=== PATIENT | female | born 1955 | race Caucasian/White ===

== ENCOUNTER 2020-10-02 20:55 | Emergency (ER) | payer MEDICARE, MEDICAID, SELFPAY ==
[2020-10-02 20:58] VITALS: BP 156/75; PULSE 87; RESP 16; TEMP 36.1; O2SAT 97; BMI 18.0
--- NOTE | 2020-10-02 22:41 | XR_ITS ---
EXAMINATION: XR CHEST CLINICAL INFORMATION: Cough. COMPARISON: Chest x-ray 03/03/2015 TECHNIQUE: Frontal portable view of the chest was obtained. 10:58 PM FINDINGS: No significant abnormality is noted involving the heart, lungs, mediastinum, bony thorax or soft tissues. XR/XR chest 1V IMPRESSION: Unremarkable examination.
--- NOTE | 2020-10-02 23:19 | PC.NURSE ---
First contact with pt. Pt changed over into fabian, ambulates with slow, steady gait. Pt reports LBP post fall a few days ago, pt reports she fell from her bed bc it is too high denies LOC. IV access obtained, labs drawn and sent. Awaiting primary md mayers
[2020-10-02 23:22] LABS: MANUAL DIFF FLAG NO
[2020-10-02 23:24] LABS: Basophils Absolute Auto 0.1 X10*3/uL (0.0-0.2); Basophils Percent Auto 0.7 % (0-2); Eosinophils Absolute Auto 0.3 X10*3/uL (0.0-0.4); Eosinophils Percent Auto 4.6 % (0-4); Hematocrit 37.6 % (37-47); Hemoglobin 12.4 g/dl (12.0-16.0); Imm Gran Abs Auto 0.01 X10*3/uL (0.00-0.03); Imm Gran Pct Auto 0.1 % (0.0-0.4); Lymphocytes Absolute Auto 2.1 X10*3/uL (1.2-4.9); Lymphocytes Percent Auto 29.4 % (20-40); Mean Corpuscular Hemoglobin 31.5 pg (27.0-33.0); Mean Corpuscular Volume 95.4 fL (80-98); Mean Platelet Volume 10.2 fL (9.4-12.3); Monocytes Absolute Auto 0.5 X10*3/uL (0.1-1.2); Monocytes Percent Auto 6.9 % (2-11); Neutrophils Absolute Auto 4.2 X10*3/uL (2.0-8.3); Neutrophils Percent Auto 58.3 % (45-73); Platelet Count 266 X10*3/uL (160-400); Red Blood Count 3.94 X10*6/uL (4.20-5.50); Red Cell Distribution Width 13.3 % (11.0-16.0); White Blood Count 7.1 X10*3/uL (4.8-10.8)
[2020-10-02 23:50] LABS: Alanine Aminotransferase 6 U/L (0-31); Albumin Level 4.2 g/dL (3.5-5.0); Alkaline Phosphatase 56 U/L (39-117); Anion Gap 14 (12-20); Aspartate Amino Transferase 18 U/L (5-31); Bilirubin Total 0.7 mg/dL (0.0-1.0); Blood Urea Nitrogen 14 mg/dL (9-16); Carbon Dioxide 25 mmol/L (22-29); Chloride 105 mmol/L (96-108); Creatinine Clr Calc Pharmacy 52.6; Estimated Glomerular Filt Rate > 60; Glucose Random 95 mg/dL (60-115); Potassium 3.8 mmol/l (3.3-5.1); Sodium 140 mmol/L (135-145); Total Protein 7.9 g/dL (6.5-8.0)
--- NOTE | 2020-10-02 23:55 | ED_ITS ---
HPI - General Adult General Chief complaint: General Medical Stated complaint: Multiple complaints Time Seen by Provider: 10/02/20 22:38 Source: patient and family Mode of arrival: ambulatory Limitations: no limitations History of Present Illness HPI narrative: This is a 65-year-old female who states that she fell out of her bed approximately 2 days ago because it is too high but denies that she hit her head or had any loss of consciousness but does describe some lower back pain. As per the daughter in triage they have concerns regarding the patient's living conditions and the landlord's involvement in keeping the premises safe. There is apparently some concern regarding access to the apartment with keys and comments that the landlord has made regarding possible eviction. the daughter also expresses some concerns that the patient is not taking care of herself, sleeping through most of the day, and has been cutting her hair and exhibiting some bizarre behavior. Related Data Home Medications Medication Instructions Recorded Confirmed Unobtainable 10/03/20 10/03/20 Allergies Allergy/AdvReac Type Severity Reaction Status Date / Time Penicillins [PENICILLINS] Allergy Intermediate RASH Verified 10/02/20 21:01 Review of Systems Review of Systems: pertinent positives and negatives as stated in HPI 10 point review systems is otherwise negative. [facility] Past Medical History Source: nursing notes reviewed Social History Social History Alcohol intake: never Smoking Status: Never smoker Use of substances other than those prescribed or required for medical reasons: No Advance Directives: No Advance Directives Information Provided: No Physical Exam Vital Signs: Vital Signs: Last Vital Signs Temp 97.9 F 10/03/20 02:53 Pulse 61 10/03/20 02:53 Resp 15 10/03/20 02:53 BP 154/77 H 10/03/20 02:53 Pulse Ox 100 10/03/20 02:53 Body Mass Index 18.0 VITAL SIGNS: Reviewed. GENERAL: Well developed, well nourished, in no acute distress. HEAD: Normocephalic/atraumatic, EYES: PERRLA, EOMI intact without pain, no nystagmus/pallor/icterus noted EARS: Ext canals without abnormality, TMs non-bulging and non-erythematous NOSE: Nares patent bilateral OROPHARYNX: no oral lesions noted, posterior pharynx clear and non-erythematous without noted tonsillar enlargement/erythema/exudates NECK: Supple, no adenopathy LUNGS: Normal breath sounds. No adventitious sounds or accessory muscle use. SpO2<97> CARDIOVASCULAR: Regular rate and rhythm without noted murmurs, no JVD or lower extremity edema. ABDOMEN: Soft, non-tender, non-distended with bowel sounds. No rigidity. No gu arding. No palpable masses or hernias noted MUSCULOSKELETAL: No tenderness, deformities, or effusions noted on gross inspection. BACK: Multiple areas along the back that are tender on palpation EXTREMITIES: No cyanosis, clubbing or edema. SKIN: Inspection of the skin reveals no rashes, ulcerations, jaundice, pallor, or petechiae. NEUROLOGIC: Alert and oriented x 4. Strength and sensation to light touch were grossly intact x 4. Course Course Course Narrative: This is a 65-year-old female with history and clinical presentation concerning for possible injury to her back and will evaluate for an y evidence of infection, anemia with likely referral to case management and PT for possible placement. At this time it does not appear that the family is able to assist the patient with living conditions. On review of all investigations there are no acute findings, specifically no evidence of vertebral /hip/pelvis fractures and COVID-19 testing is negative. Patient is otherwise medically cleared for further evaluation by case management as well as physical therapy and possible placement. Sign out to Dr Bill. Plan: CM/PT, f/u Medical Decision Making Lab Data Result diagrams: 10/02/20 23:14 10/02/20 23:14 Labs: Lab Results 10/02/20 10/02/20 10/03/20 Range/Units 23:14 23:14 00:05 WBC 7.1 (4.8-10.8) X10*3/uL RBC 3.94 L (4.20-5.50) X10*6/uL Hgb 12.4 (12.0-16.0) g/dl Hct 37.6 (37-47) % MCV 95.4 (80-98) fL MCH 31.5 (27.0-33.0) pg MCHC 33.0 (31.0-35.0) g/dl RDW 13.3 (11.0-16.0) % Plt Count 266 (160-400) X10*3/uL MPV 10.2 (9.4-12.3) fL Immature Gran % (Auto) 0.1 (0.0-0.4) % Neut % (Auto) 58.3 (45-73) % Lymph % (Auto) 29.4 (20-40) % [place] % (Auto) 6.9 (2-11) % Eos % (Auto) 4.6 H (0-4) % Baso % (Auto) 0.7 (0-2) % Lymph # (Auto) 2.1 (1.2-4.9) X10*3/uL [place] # (Auto) 0.5 (0.1-1.2) X10*3/uL Eos # (Auto) 0.3 (0.0-0.4) X10*3/uL Baso # (Auto) 0.1 (0.0-0.2) X10*3/uL Abs Immat Gran (auto) 0.01 (0.00-0.03) X10*3/uL Absolute Neuts (auto) 4.2 (2.0-8.3) X10*3/uL Absolute Nucleated RBC 0.000 (0.0-0.012) X10*3/uL Nucleated RBC % (auto) 0.0 (0.0-0.2) /100WBC Sodium 140 (135-145) mmol/L Potassium 3.8 (3.3-5.1) mmol/l Chloride 105 (96-108) mmol/L Carbon Dioxide 25 (22-29) mmol/L Anion Gap 14 (12-20) BUN 14 (9-16) mg/dL Creatinine 0.78 (0.5-1.4) mg/dL Estim Creat Clear Calc 52.6 Estimated GFR > 60 Random Glucose 95 (60-115) mg/dL Calcium 9.0 (8.4-10.2) mg/dL Total Bilirubin 0.7 (0.0-1.0) mg/dL AST 18 (5-31) U/L ALT 6 (0-31) U/L Alkaline Phosphatase 56 (39-117) U/L Total Protein 7.9 (6.5-8.0) g/dL Albumin 4.2 (3.5-5.0) g/dL COVID-19 (DEBORAH) Negative (Negative) COVID-19 Clin Com See Note Discharge Plan Discharge Prescriptions: No [facility] Unobtainable RF: 0
--- NOTE | 2020-10-03 00:14 | CT_ITS ---
EXAM: NONCONTRAST CT OF THE CHEST; NONCONTRAST CT OF THE ABDOMEN AND PELVIS INDICATION: Fall from bed 2 days ago with back pain COMPARISON: None TECHNIQUE: No IV contrast was utilized. Multidetector helical imaging was performed through the chest, abdomen, and pelvis. Coronal and sagittal reformatted images were created at the technologist workstation. DOSE LOWERING TECHNIQUES: This CT examination was performed using dose optimization techniques as appropriate, variously including the following: - Automated exposure control - Adjustment of mA and/or kV according to patient size (this includes techniques or standardized protocols for targeted exams were dose is matched to indication/reason for exam; i.e. extremities or head) - Use of iterative reconstruction technique DLP: 481 mGy-cm FINDINGS: Chest: No regions of consolidation bilaterally. Subpleural nodular density measuring 4 mm is noted along the lateral right middle lobe on image [id number]. There is a 2 mm left upper lobe nodule on image [id number] laterally. No pneumothorax or pleural effusion. The visualized thyroid gland is unremarkable. There are subcentimeter mediastinal lymph nodes within the range of normal variation. Cardiac size is within normal limits; no pericardial effusion. Coronary artery calcifications are present. The ascending aorta is prominent, measuring approximately 4.1 cm in diameter. Mild scattered calcification along the aorta. No axillary lymphadenopathy is present. No acute findings identified in the thoracic spine. Mild scattered endplate osteophytes are present. Abdomen/Pelvis: The liver is homogeneous in attenuation without intrahepatic biliary ductal dilatation. The gallbladder appears contracted. The unenhanced spleen, pancreas, and adrenal glands are within normal limits. The unenhanced kidneys are unremarkable without hydronephrosis. No renal or ureteral calculi are present. The urinary bladder is unremarkable. The uterus and adnexa are unremarkable. The small and large bowel are unremarkable without evidence of obstruction or pericolonic inflammatory change. The appendix is unremarkable. No free fluid or free air is identified. There is mild scattered atherosclerotic calcification. No lymphadenopathy is seen, though assessment is limited in the absence of intravenous contrast. No acute findings identified in the lumbar spine. Vertebral body heights are maintained. Intervertebral disc spaces appear relatively well-preserved. CT/CT abdomen pelvis wo con IMPRESSION: 1. No acute findings identified in the chest, abdomen, pelvis, or thoracolumbar spine. 2. Dilated ascending aorta measuring approximately 4.1 cm in diameter. 3. Tiny lung nodules as described above. According to the UPDATED 2017 Fleischner Society recommendations, the advised follow-up imaging for solid nodules < 6 mm is: LOW RISK PATIENT: No routine follow-up. HIGH RISK PATIENT: Optional CT at 12 months.
[2020-10-03 00:33] LABS: COVID-19 Test Negative (Negative)
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
[2020-10-03 02:53] VITALS: BP 154/77; PULSE 61; RESP 15; TEMP 36.6; O2SAT 100
--- NOTE | 2020-10-03 03:21 | PC.NURSE ---
Pt unable to report what medications she takes at home, denies having list of meds on person. Appears in NAD at this time, MD requesting pt be provided with food and drink to obtain a urine
[2020-10-03 07:53] LABS: Glucose Urine UA NEG (NEG); Leukocyte Esterase Urine 1+ (NEG); Nitrite Urine NEG (NEG); Urine Blood NEG (NEG); Urine Ketones NEG (NEG); Urine Protein NEG (NEG-TRACE)
[2020-10-03 07:54] LABS: Appearance Urine HAZY; Color Urine YELLOW
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
[2020-10-03 08:07] LABS: Bacteria Urine 2+ /LPF; RBC Urine 0-2 /HPF (0); Squamous Epithelial Cell Urine TRACE /LPF
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
[2020-10-03] MEDS: Benzonatate 100 MG CAPSULE PO (10:05)
--- NOTE | 2020-10-03 11:51 | MHC.CM.ED ---
Addendum entered by Mary Carrasco 10/03/20 11:51: Spoke with patient's daughter/HCP, Fabiola via telephone at [phone]. Patient lives alone, has a walker but doesn't use it and had no services prior to coming to the ER. Patient did have a PCP at [facility]. However, she hasn't seen a doctor in a while . HCP verified to be on file. Short term rehab options discussed. Fabiola's choices are: 1)[facility] 2)[facility]. [facility] does not have a bed today. Waiting to hear from [facility]. Continue to monitor for d/c needs. Original Note: Received case management consult overnight. Patient came to ER with multiple complains. Patient found to have an UTI. Physical therapy eval completed. Short term rehab is recommended. Attempted to meet with patient. Patient sleeping. Spo
--- NOTE | 2020-10-03 11:57 | PC.NURSE ---
pt resting in stretcher, appears cmfortable. sts relief following prn med. per case mgmt, pt referred to snf placement for str.
--- NOTE | 2020-10-03 13:34 | MHC.CM.CNN ---
[facility] is able to offer a bed. Patient can leave at 2pm. [facility] booked. Med nec with chart. Left voicemail for daughter/HCP, Fabiola at [phone] explaining discharge plan. Patient, Larissa KNOTT and Rohit RN aware. Continue to monitor for d/c needs.
[2020-10-03] MEDS: LORazepam 0.5 MG TABLET PO (14:25)
== END 2020-10-03 15:02 | disposition skilled nursing facility (03) ==
PROVIDERS: Emergency Provider Student in an Organized Health Care Education/Training Program
DX: N39.0 Urinary tract infection, site not specified (principal); M54.5 Low back pain; Z91.81 History of falling; Z20.828 Contact with and (suspected) exposure to other viral communicable diseases
CPT/HCPCS: 36415; 71045; 71250; 74176; 80053; 81001; 85025; 87086; 87088; 87186; 87635; 97162; 99284

== ENCOUNTER 2020-10-13 | Outpatient (REF) | payer SELFPAY ==
[2020-10-13 07:15] LABS: Hematocrit 35.9 % (37-47); Hemoglobin 11.9 g/dl (12.0-16.0); Mean Corpuscular HGB Conc 33.1 g/dl (31.0-35.0); Mean Corpuscular Hemoglobin 30.9 pg (27.0-33.0); Mean Corpuscular Volume 93.2 fL (80-98); Platelet Count 262 X10*3/uL (160-400); Red Blood Count 3.85 X10*6/uL (4.20-5.50); White Blood Count 5.7 X10*3/uL (4.8-10.8)
[2020-10-13 07:41] LABS: Anion Gap 13 (12-20); Blood Urea Nitrogen 15 mg/dL (9-16); Carbon Dioxide 26 mmol/L (22-29); Chloride 102 mmol/L (96-108); Estimated Glomerular Filt Rate > 60; Glucose Random 88 mg/dL (60-115); Potassium 4.2 mmol/l (3.3-5.1); Sodium 137 mmol/L (135-145)
== END 2020-10-13 00:01 ==
LOC: HO.MMNH2L
PROVIDERS: Visit Provider Family Medicine
DX: I10 Essential (primary) hypertension (principal)
CPT/HCPCS: 36415; 80048; 85027

== ENCOUNTER 2020-10-21 13:06 | Emergency (ER) | payer MEDICARE, MEDICAID, SELFPAY ==
[2020-10-21 15:00] VITALS: BP 133/58; PULSE 56; RESP 17; TEMP 36.9; O2SAT 99
--- NOTE | 2020-10-21 15:28 | XR_ITS ---
EXAMINATION: CHEST AND BILATERAL RIB X-RAY CLINICAL INFORMATION: Bilateral rib pain COMPARISON: Previous chest x-ray 10/02/[address] 10/03/2020 TECHNIQUE: One view of the chest 3 views of the bilateral ribs FINDINGS: The cardiac and mediastinal contours are normal. The lungs are clear. There is no pleural effusion or pneumothorax. There are right eighth and ninth posterior lateral rib fractures these do not appear acute. No left rib fracture is seen. There are soft tissue calcifications in the left breast. XR/XR ribs BI 3V IMPRESSION: Right posterior lateral eighth and ninth rib fractures. These do not appear acute. EXAMINATION: Pelvis and bilateral hip x-ray CLINICAL INFORMATION: Pain. COMPARISON: None. TECHNIQUE: One view of the pelvis and 2 views of each hip FINDINGS: No pelvic fracture is seen. The sacroiliac joints and pubic symphysis are normal. There is mild arthritis at the hip joints, left greater than right. No hip fracture or dislocation is seen. There is evidence of atherosclerotic disease. IMPRESSION: No fracture seen. Mild degenerative changes at the hip joints, left greater than right.
--- NOTE | 2020-10-21 15:28 | CT_ITS ---
EXAMINATION: CT ABDOMEN AND PELVIS WITH CONTRAST CLINICAL INFORMATION: 65-year-old female patient with left lower quadrant pain and right abdominal tenderness to palpation. Diffuse back pain. COMPARISON: CT of the abdomen and pelvis on 10/03/2020. (Unremarkable). TECHNIQUE: Multidetector volumetric images were obtained from the superior aspect of the liver through the pubic symphysis following administration 85 mL of Omnipaque 350 intravenous contrast. Sagittal and coronal reformatted images were obtained on the technologist's workstation. Oral contrast: No The patient was unable to suspend respiration for the totality of this exam. This CT examination was performed using dose optimization techniques as appropriate, variously including the following: *Automated exposure control *Adjustment of mA and/or kV according to patient size (this includes techniques or standardized protocols for targeted exams where dose is matched to indication/reason for exam; i.e. extremities or head) *Use of iterative reconstruction technique DLP: 314 mGy-cm FINDINGS: TRANSPORTATION AID: No obstruction. LUNG BASES: The visualized lung bases are unremarkable. LIVER, GALLBLADDER, AND BILIARY TREE: The liver is normal in size, shape, and attenuation. No focal hepatic lesion or biliary ductal dilatation is present. The gallbladder is postprandial in size. PANCREAS: Unremarkable. SPLEEN: Unremarkable. ADRENAL GLANDS: Unremarkable. KIDNEYS AND URETERS: The kidneys are normal in size, shape, and attenuation. No hydronephrosis, hydroureter, or calculi seen. No perinephric stranding. BLADDER: Unremarkable. GASTROINTESTINAL TRACT: The small and large bowel are unremarkable. The appendix is unremarkable. No free fluid. ABDOMINAL WALL: No significant hernia is appreciated. LYMPH NODES: Normal. VASCULAR: Unremarkable. PELVIC VISCERA: Anteverted uterus is flexed to the left of midline. OSSEOUS STRUCTURES: Unremarkable. CT/CT abdomen pelvis w con IMPRESSION: No significant abnormality.
--- NOTE | 2020-10-21 15:28 | XR_ITS ---
EXAMINATION: CHEST AND BILATERAL RIB X-RAY CLINICAL INFORMATION: Bilateral rib pain COMPARISON: Previous chest x-ray 10/02/[address] 10/03/2020 TECHNIQUE: One view of the chest 3 views of the bilateral ribs FINDINGS: The cardiac and mediastinal contours are normal. The lungs are clear. There is no pleural effusion or pneumothorax. There are right eighth and ninth posterior lateral rib fractures these do not appear acute. No left rib fracture is seen. There are soft tissue calcifications in the left breast. XR/XR hip BI w PEL1V IMPRESSION: Right posterior lateral eighth and ninth rib fractures. These do not appear acute. EXAMINATION: Pelvis and bilateral hip x-ray CLINICAL INFORMATION: Pain. COMPARISON: None. TECHNIQUE: One view of the pelvis and 2 views of each hip FINDINGS: No pelvic fracture is seen. The sacroiliac joints and pubic symphysis are normal. There is mild arthritis at the hip joints, left greater than right. No hip fracture or dislocation is seen. There is evidence of atherosclerotic disease. IMPRESSION: No fracture seen. Mild degenerative changes at the hip joints, left greater than right.
--- NOTE | 2020-10-21 15:34 | ED.BACK ---
HPI - Back Pain/Injury General Chief Complaint: Back Pain/Injury Stated Complaint: low back pain Time Seen by Provider: 10/21/20 14:56 Source: patient Mode of arrival: ambulatory History of Present Illness HPI Narrative: 65-year-old female with a past medical history of undiagnosed underlying dementia brought to ED by daughter for back pain x1 week. Daughter reports patient was recently at [facility], after being seen in the ED for a fall, however patient was unhappy there so daughter is now caring for patient at her home. admits patient has been complaining of back pain since arrival at her house. Denies fall, or trauma. Daughter admits patient suffers with chronic back pain. Denies fever, chills, nausea/vomiting, abdominal pain, urinary incontinence or retention. Admits patient has been ambulating with catrachito SOMERS elicited complaint: back pain Related Data Home Medications Medication Instructions Recorded Confirmed Unobtainable 10/03/20 10/03/20 Allergies Allergy/AdvReac Type Severity Reaction Status Date / Time Penicillins [PENICILLINS] Allergy Intermediate RASH Verified 10/02/20 21:01 Review of Systems Review of Systems: Constitutional: No Weight loss, No Fever, No Chills Gastrointestinal: No Nausea, No Vomiting, No Diarrhea, No Abdominal pain Genitourinary: No Dysuria, No Urinary Frequency, No Hematuria, No Urinary Incontinence/retention Musculoskeletal: +back pain, No Joint Swelling Skin: No Skin Lesions, No rash History obtained from daughter Yes all other systems are reviewed and are negative [facility] Past Medical History Attestation statement: The following information was validated with the patient. Social History Social History Alcohol intake: never Smoking Status: Never smoker Smoked in Last 30 Days: No Use of substances other than those prescribed or required for medical reasons: No Advance Directives: No Advance Directives Information Provided: Yes Physical Exam Vital Signs: Vital Signs: Last Vital Signs Temp 98.4 F 10/21/20 15:00 Pulse 56 10/21/20 15:00 Resp 17 10/21/20 15:00 BP 133/58 L 10/21/20 15:00 Pulse Ox 99 10/21/20 15:00 Const: General: cooperative and healthy appearing Limitations: no limitations HENMT: Head: Yes normal to inspection Ears: hearing grossly normal bilaterally General nose exam: Normal external nose present Face and sinus: Yes normal facial exam Eyes: General: appearance normal, both eyes and all related structures Pupils: Equal, round and reactive pupils present EOM: EOMs intact bilaterally Neck: Other: No midline cervical spinous tenderness Neck: Yes normal visual inspection Chest: Other: + diffuse nonlocalized chest wall tenderness to palpation > right Chest palpation & inspection: normal inspection of the chest and no crepitus Resp: Effort & Inspection: normal respiratory effort Cardio: Rate: regular rate Heart sounds: S1 normal heart sound present and S2 normal heart sound present GI: Inspection: Yes normal to inspection Palpation (GI): Soft to palpation, Tenderness to palpation present (GI) (And right abdomen) in the LLQ, no guarding and not rigid Back/Spine/Pelvis: Other: No midline thoracic/lumbar spinous tenderness. + lumbar paraspinal tenderness Skin: Rashes: no rashes Wounds: no wounds Neuro: Other: No saddle anesthesia General: tone normal and moves all extremities Cranial nerves: Yes Equal, round and reactive pupils present Motor exam (neuro): 5/5 motor strength present throughout Extrem: General: Yes normal to inspection Course Course Course Narrative: Labs notable for mildly elevated lipase at 105 UA infected, nitrate positive, with bacteria Rib series with sub acute posterior lateral 8th and 9th rib fractures > these are not appreciated on recent CT chest on 10/03 Pelvic/Hips x-ray without fracture. Mild degenerative changes of the hips left greater than right 1829--ED care transfer to [facility] pending CT results and dispo per results MDM - Back Pain/Injury MDM Narrative Medical decision making narrative: 65-year-old female with a past medical history of undiagnosed underlying dementia brought to ED by daughter for back pain x1 week. On exam VSS NAD history obtained from daughter. Physical exam as above. Concern for MSK pain vs ?Fracture vs renal stone or diverticulitis/appendicitis/UTI or other intra-abdominal pathology. Plan: Labs, UA, imaging, reassess Lab Data Result diagrams: 10/21/20 16:46 10/21/20 16:46 Labs: Lab Results 10/21/20 10/21/20 10/21/20 Range/Units 16:46 16:46 16:46 WBC 6.4 (4.8-10.8) X10*3/uL RBC 4.05 L (4.20-5.50) X10*6/uL Hgb 12.6 (12.0-16.0) g/dl Hct 37.6 (37-47) % MCV 92.8 (80-98) fL MCH 31.1 (27.0-33.0) pg MCHC 33.5 (31.0-35.0) g/dl RDW 12.9 (11.0-16.0) % Plt Count 230 (160-400) X10*3/uL MPV 10.9 (9.4-12.3) fL Immature Gran % (Auto) 0.2 (0.0-0.4) % Neut % (Auto) 62.7 (45-73) % Lymph % (Auto) 28.2 (20-40) % [place] % (Auto) 4.5 (2-11) % Eos % (Auto) 3.9 (0-4) % Baso % (Auto) 0.5 (0-2) % Lymph # (Auto) 1.8 (1.2-4.9) X10*3/uL [place] # (Auto) 0.3 (0.1-1.2) X10*3/uL Eos # (Auto) 0.3 (0.0-0.4) X10*3/uL Baso # (Auto) 0.0 (0.0-0.2) X10*3/uL Abs Immat Gran (auto) 0.01 (0.00-0.03) X10*3/uL Absolute Neuts (auto) 4.0 (2.0-8.3) X10*3/uL Absolute Nucleated RBC 0.000 (0.0-0.012) X10*3/uL Nucleated RBC % (auto) 0.0 (0.0-0.2) /100WBC Hold Blue Top SEE NOTE Sodium 134 L (135-145) mmol/L Potassium 4.3 (3.3-5.1) mmol/l Chloride 100 (96-108) mmol/L Carbon Dioxide 26 (22-29) mmol/L Anion Gap 12 (12-20) BUN 15 (9-16) mg/dL Creatinine 0.79 (0.5-1.4) mg/dL Estim Creat Clear Calc TNP Estimated GFR > 60 Random Glucose 105 (60-115) mg/dL Calcium 9.1 (8.4-10.2) mg/dL Magnesium 1.8 (1.6-2.6) mg/dL Total Bilirubin 0.3 (0.0-1.0) mg/dL Direct Bilirubin < 0.2 (0.0-0.5) mg/dL AST 23 D (5-31) U/L ALT 15 (0-31) U/L Alkaline Phosphatase 56 (39-117) U/L Total Protein 7.6 (6.5-8.0) g/dL Albumin 4.1 (3.5-5.0) g/dL Lipase 105 H (8-78) U/L Urine Color Urine Appearance Urine pH (5.0-8.0) Ur Specific [place] (1.005-1.025) Urine Protein (NEG-TRACE) MG/DL Urine Glucose (UA) (NEG) MG/DL Urine Ketones (NEG) MG/DL Urine Blood (NEG) Urine Nitrite (NEG) Ur Leukocyte Esterase (NEG) Urine RBC (0) /HPF Urine WBC (0-4) /HPF Ur Squamous Epith Cells /LPF Urine Bacteria /LPF Urine Yeast /HPF 10/21/20 Range/Units 16:46 WBC (4.8-10.8) X10*3/uL RBC (4.20-5.50) X10*6/uL Hgb (12.0-16.0) g/dl Hct (37-47) % MCV (80-98) fL MCH (27.0-33.0) pg MCHC (31.0-35.0) g/dl RDW (11.0-16.0) % Plt Count (160-400) X10*3/uL MPV (9.4-12.3) fL Immature Gran % (Auto) (0.0-0.4) % Neut % (Auto) (45-73) % Lymph % (Auto) (20-40) % [place] % (Auto) (2-11) % Eos % (Auto) (0-4) % Baso % (Auto) (0-2) % Lymph # (Auto) (1.2-4.9) X10*3/uL [place] # (Auto) (0.1-1.2) X10*3/uL Eos # (Auto) (0.0-0.4) X10*3/uL Baso # (Auto) (0.0-0.2) X10*3/uL Abs Immat Gran (auto) (0.00-0.03) X10*3/uL Absolute Neuts (auto) (2.0-8.3) X10*3/uL Absolute Nucleated RBC (0.0-0.012) X10*3/uL Nucleated RBC % (auto) (0.0-0.2) /100WBC Hold Blue Top Sodium (135-145) mmol/L Potassium (3.3-5.1) mmol/l Chloride (96-108) mmol/L Carbon Dioxide (22-29) mmol/L Anion Gap (12-20) BUN (9-16) mg/dL Creatinine (0.5-1.4) mg/dL Estim Creat Clear Calc Estimated GFR Random Glucose (60-115) mg/dL Calcium (8.4-10.2) mg/dL Magnesium (1.6-2.6) mg/dL Total Bilirubin (0.0-1.0) mg/dL Direct Bilirubin (0.0-0.5) mg/dL AST (5-31) U/L ALT (0-31) U/L Alkaline Phosphatase (39-117) U/L Total Protein (6.5-8.0) g/dL Albumin (3.5-5.0) g/dL Lipase (8-78) U/L Urine Color YELLOW Urine Appearance HAZY Urine pH 6.0 (5.0-8.0) Ur Specific [place] 1.020 (1.005-1.025) Urine Protein NEG (NEG-TRACE) MG/DL Urine Glucose (UA) NEG (NEG) MG/DL Urine Ketones NEG (NEG) MG/DL Urine Blood NEG (NEG) Urine Nitrite POS H (NEG) Ur Leukocyte Esterase NEG (NEG) Urine RBC 0 (0) /HPF Urine WBC 1-4 (0-4) /HPF Ur Squamous Epith Cells 2+ /LPF Urine Bacteria 3+ /LPF Urine Yeast TRACE /HPF Discharge Plan Discharge Clinical Impression: Acute UTI Rib fractures Qualifiers: Rib fracture type: multiple ribs Fracture type: closed Laterality: right Prescriptions: No Action Unobtainable RF: 0
[2020-10-21 16:59] LABS: MANUAL DIFF FLAG NO
[2020-10-21 17:01] LABS: Basophils Percent Auto 0.5 % (0-2); Eosinophils Absolute Auto 0.3 X10*3/uL (0.0-0.4); Eosinophils Percent Auto 3.9 % (0-4); Hematocrit 37.6 % (37-47); Hemoglobin 12.6 g/dl (12.0-16.0); Imm Gran Abs Auto 0.01 X10*3/uL (0.00-0.03); Imm Gran Pct Auto 0.2 % (0.0-0.4); Lymphocytes Absolute Auto 1.8 X10*3/uL (1.2-4.9); Lymphocytes Percent Auto 28.2 % (20-40); Mean Corpuscular HGB Conc 33.5 g/dl (31.0-35.0); Mean Corpuscular Hemoglobin 31.1 pg (27.0-33.0); Mean Corpuscular Volume 92.8 fL (80-98); Mean Platelet Volume 10.9 fL (9.4-12.3); Monocytes Absolute Auto 0.3 X10*3/uL (0.1-1.2); Monocytes Percent Auto 4.5 % (2-11); Neutrophils Percent Auto 62.7 % (45-73); Platelet Count 230 X10*3/uL (160-400); Red Blood Count 4.05 X10*6/uL (4.20-5.50); Red Cell Distribution Width 12.9 % (11.0-16.0); White Blood Count 6.4 X10*3/uL (4.8-10.8)
[2020-10-21 17:05] LABS: Glucose Urine UA NEG (NEG); Leukocyte Esterase Urine NEG (NEG); Nitrite Urine POS (NEG); Urine Blood NEG (NEG); Urine Ketones NEG (NEG); Urine Protein NEG (NEG-TRACE)
[2020-10-21 17:23] LABS: Appearance Urine HAZY; Color Urine YELLOW
[2020-10-21 17:27] LABS: Alanine Aminotransferase 15 U/L (0-31); Albumin Level 4.1 g/dL (3.5-5.0); Alkaline Phosphatase 56 U/L (39-117); Anion Gap 12 (12-20); Aspartate Amino Transferase 23 U/L (5-31); Bacteria Urine 3+ /LPF; Bilirubin Direct < 0.2 mg/dL (0.0-0.5); Bilirubin Total 0.3 mg/dL (0.0-1.0); Blood Urea Nitrogen 15 mg/dL (9-16); Calcium 9.1 mg/dL (8.4-10.2); Carbon Dioxide 26 mmol/L (22-29); Chloride 100 mmol/L (96-108); Estimated Glomerular Filt Rate > 60; Glucose Random 105 mg/dL (60-115); Lipase 105 U/L (8-78); Magnesium 1.8 mg/dL (1.6-2.6); Potassium 4.3 mmol/l (3.3-5.1); RBC Urine 0 /HPF (0); Sodium 134 mmol/L (135-145); Squamous Epithelial Cell Urine 2+ /LPF; Total Protein 7.6 g/dL (6.5-8.0)
[2020-10-21] MEDS: iohexoL 350 MG/ML 100 ML INFUS..BTL IV (17:51)
[2020-10-21 18:45] VITALS: BP 137/63; PULSE 60; RESP 20; TEMP 36.6; O2SAT 100
== END 2020-10-21 19:47 | disposition home or self-care (01) ==
PROVIDERS: Physician Assistant; Emergency Provider Emergency Medicine
DX: S22.41XA Multiple fractures of ribs, right side, initial encounter for closed fracture (principal); N39.0 Urinary tract infection, site not specified; M25.552 Pain in left hip; R07.81 Pleurodynia; M25.551 Pain in right hip; W01.0XXA Fall on same level from slipping, tripping and stumbling without subsequent striking against object, initial encounter; Y93.9 Activity, unspecified; Y92.9 Unspecified place or not applicable; Y99.9 Unspecified external cause status; Y93.01 Activity, walking, marching and hiking
CPT/HCPCS: 36415; 71110; 73521; 74177; 80048; 80076; 81001; 81003; 83690; 83735; 85025; 87086; 87088; 87186; 99284; Q9967

== ENCOUNTER 2020-12-30 10:03 | Outpatient (REF) | payer MEDICARE, MEDICAID, SELFPAY ==
--- NOTE | ~2020-12-30 | US_ITS ---
EXAMINATION: US COMPLETE ABDOMEN WITH LIVER ELASTOGRAPHY CLINICAL INFORMATION: History of alcohol abuse COMPARISON: Previous CT of the abdomen and pelvis September 2020 TECHNIQUE: Real-time imaging of the abdominal viscera. Noninvasive ultrasound liver fibrosis assessment is performed using Gianfranco ElastPQ point quantification shear wave elastography (pSWE) with a C5-2 MHz transducer. Multiple elastography samples are obtained. FINDINGS: PANCREAS: Not well visualized due to bowel gas. ABDOMINAL AORTA: The proximal, middle, and distal aortic segments are normal in caliber. INFERIOR VENA CAVA: Visualized portions are normal. LIVER: Normal. The liver demonstrates normal size, contour and echogenicity. No focal lesion or intrahepatic biliary duct dilatation. The right lobe measures 13.3 cm in length. The left lobe measures 10.6 cm in length. Portal flow is normal/hepatopedal. Shear wave liver elastography median stiffness is 1.1 m/s (reference: normal median stiffness is 1.3 m/s or less). IQR/median stiffness to assess sampling precision is 0.24 (reference: good quality data set is IQR/median stiffness of 0.15 or less). GALLBLADDER: Normal. The gallbladder is physiologically distended without evidence of stones, sludge, polyps, wall thickening or pericholecystic fluid. COMMON BILE DUCT: Normal in caliber measuring 1.1 cm in diameter. RIGHT KIDNEY: Normal. No hydronephrosis. No renal calculi or focal parenchymal lesions. The kidney measures 10.2 cm in maximum dimension. LEFT KIDNEY: Normal. No hydronephrosis. No renal calculi or focal parenchymal lesions. The kidney measures 10.4 cm in maximum dimension. SPLEEN: Normal. The spleen measures 7.8 cm in maximum dimension. FREE FLUID: None. US/US abdomen comp w elastography IMPRESSION: 1. Impression : Dilated common bile duct measuring up to 1.1 cm. Limited visualization of the pancreas. 2. Liver elastography: Normal liver stiffness but limited due to sampling error. REFERENCE: Society of Radiologists in Ultrasound Liver Stiffness Thresholds (2020): LIVER STIFFNESS THRESHOLDS: *Liver Stiffness equal or less than 1.3 m/s: High probability of being normal. *Liver Stiffness less than 1.7 m/s: In the absence of other known clinical signs, rules out compensated advanced chronic liver disease. *Liver Stiffness 1.7-2.1 m/s: Suggestive of compensated advanced chronic liver disease but need further test for confirmation. *Liver Stiffness over 2.1 m/s: Rules in compensated advanced chronic liver disease. *Liver Stiffness over 2.4 m/s: Suggestive of clinically significant portal hypertension. QUALITY OF DATA SET: *IQR/Median value equal or less than 0.15 implies a quality data set. *IQR/Median value over 0.15 implies a poor quality data set. SIGNIFICANT CHANGE FROM PRIOR EXAM: Significant change if liver stiffness measurement is 10% or greater from prior exam. OTHER CONSIDERATIONS: The stage of liver fibrosis may be overestimated in the setting of acute hepatitis, liver inflammation, elevated liver function tests, hepatic vascular congestion, obstructive cholestasis, non-fasting state, and infiltrative diseases such as amyloidosis and lymphoma. In some patients with NAFLD, the liver stiffness thresholds for compensated advanced chronic liver disease may be lower. In causes other than viral hepatitis and NAFLD, liver stiffness thresholds are not well established.
== END 2020-12-30 10:04 | disposition home or self-care (01) ==
LOC: HO.US 10:03
PROVIDERS: PCP Internal Medicine; Visit Provider Internal Medicine
DX: F10.11 Alcohol abuse, in remission (principal)
CPT/HCPCS: 76705; 76981

== ENCOUNTER 2021-01-07 08:51 | Outpatient (REF) | payer MEDICARE, MEDICAID, SELFPAY ==
--- NOTE | ~2021-01-07 | MR_ITS ---
MRI OF THE BRAIN WITHOUT IV CONTRAST INDICATION: Disorientation, unspecified COMPARISON: Brain MRI 03/10/2015. TECHNIQUE: Multiplanar multisequence MR imaging of the brain was obtained without IV contrast. FINDINGS: There is no hydrocephalus, extra-axial surface collection, or herniation. There is global cerebral volume loss and there are progressive T2 signal changes throughout the supratentorial periventricular and subcortical white matter. Differential considerations include worsening chronic microangiopathy, demyelinating disease, or an alternative white matter process which can be clinically correlated. The major flow voids at the skull base are preserved. There is no acute infarct on diffusion-weighted imaging. There is no intracranial hemorrhage on the gradient recalled echo acquisition. The midline structures are normal. The cerebellar tonsils are normally positioned. The cerebellum and brainstem are normal. The craniocervical junction is normal. Osseous marrow signal intensity is homogenous. The visualized soft tissues are unremarkable. Mild mucosal thickening and retention cyst within the right maxillary sinus. MR/MR head/brain wo con IMPRESSION: - There is global cerebral volume loss and there are progressive T2 signal changes throughout the supratentorial periventricular and subcortical white matter. Differential considerations include worsening chronic microangiopathy, demyelinating disease, or an alternative white matter process which can be clinically correlated. - Chronic lacunar infarcts within the cerebellar hemispheres bilaterally.
== END 2021-01-07 08:52 | disposition home or self-care (01) ==
LOC: HO.MRI 08:51
PROVIDERS: Visit Provider Internal Medicine
DX: R41.0 Disorientation, unspecified (principal); F10.11 Alcohol abuse, in remission
CPT/HCPCS: 70551

== ENCOUNTER 2021-04-01 10:52 | Outpatient (REF) | payer MEDICARE, MEDICAID, SELFPAY ==
[2021-04-01 12:20] LABS: T4 Thyroxine 10.4 ug/dL (4.5-12.0); Thyroid Stimulating Hormone 1.51 uIU/mL (0.32-4.0)
[2021-04-01 12:29] LABS: Folate 16.7 ng/mL (> or = 4.0); Vitamin B12 709 pg/mL (200-900)
== END 2021-04-01 10:53 | disposition home or self-care (01) ==
LOC: HO.LAB 10:52
PROVIDERS: PCP Internal Medicine; Visit Provider Psychiatry & Neurology Neurology
DX: G30.9 Alzheimer's disease, unspecified (principal); F02.80 Dementia in other diseases classified elsewhere, unspecified severity, without behavioral disturbance, psychotic disturbance, mood disturbance, and anxiety
CPT/HCPCS: 36415; 82607; 82746; 84436; 84443

== ENCOUNTER 2022-01-14 14:00 | Outpatient (REF) | payer MEDICARE, MEDICAID, SELFPAY ==
[2022-01-15 09:46] LABS: Appearance Urine HAZY; Color Urine YELLOW; Glucose Urine UA NEG (NEG); Leukocyte Esterase Urine 2+ (NEG); Nitrite Urine NEG (NEG); Specific Gravity - Urine <= 1.005 (1.005-1.025); UACC Culture Trigger YES; Urine Blood 3+ (NEG); Urine Ketones NEG (NEG); Urine Protein NEG (NEG-TRACE)
[2022-01-15 10:18] LABS: Bacteria Urine 3+ /LPF; RBC Urine 0-2 /HPF (0); WBC Urine 0-2 /HPF (0-4)
== END 2022-01-14 14:01 | disposition home or self-care (01) ==
LOC: HO.LNP 14:00
PROVIDERS: Visit Provider Internal Medicine
DX: R30.0 Dysuria (principal)
CPT/HCPCS: 81001; 87086; 87088; 87186

== ENCOUNTER 2022-08-03 12:13 | Outpatient (REF) | payer MEDICARE, MEDICAID, SELFPAY ==
[2022-08-03 14:09] LABS: Hematocrit 34.7 % (37.0-47.0); Hemoglobin 10.8 g/dl (12.0-16.0); Mean Corpuscular HGB Conc 31.1 g/dl (31.0-35.0); Mean Corpuscular Hemoglobin 24.1 pg (27.0-33.0); Mean Corpuscular Volume 77.5 fL (80.0-98.0); Mean Platelet Volume 10.8 fL (9.4-12.3); Platelet Count 383 X10*3/uL (160-400); Red Blood Count 4.48 X10*6/uL (4.20-5.50); Red Cell Distribution Width 16.3 % (11.0-16.0); White Blood Count 12.1 X10*3/uL (4.8-10.8)
[2022-08-03 14:34] LABS: B Type Natriuretic Peptide 63 pg/mL (<100)
== END 2022-08-03 12:14 | disposition home or self-care (01) ==
LOC: HO.HMGCLDS 12:13
PROVIDERS: PCP Internal Medicine; Visit Provider Emergency Medicine
DX: R53.83 Other fatigue (principal); R60.0 Localized edema
CPT/HCPCS: 36415; 83880; 85027

== ENCOUNTER 2022-12-14 12:30 | Outpatient (REF) | payer MEDICARE, MEDICAID, SELFPAY ==
--- NOTE | ~2022-12-14 | XR_ITS ---
EXAMINATION: XR CHEST CLINICAL INFORMATION: Cough COMPARISON: 10/21/2020 TECHNIQUE: 2 views of the chest were obtained. FINDINGS: No significant abnormality is noted involving the heart, lungs, mediastinum, bony thorax or soft tissues. XR/XR chest 2V IMPRESSION: Unremarkable examination.
== END 2022-12-14 12:31 | disposition home or self-care (01) ==
LOC: HO.XRAY 12:30
PROVIDERS: PCP Internal Medicine; Visit Provider Internal Medicine
DX: R05.9 Cough, unspecified (principal)
CPT/HCPCS: 71046

== ENCOUNTER 2023-02-08 09:23 | Outpatient (REF) | payer MEDICARE, MEDICAID, SELFPAY ==
[2023-02-08 09:44] LABS: MANUAL DIFF FLAG NO
[2023-02-08 10:40] LABS: Basophils Percent Auto 0.4 % (0-2); Eosinophils Absolute Auto 0.1 X10*3/uL (0.0-0.4); Eosinophils Percent Auto 1.3 % (0-4); Hematocrit 36.7 % (37.0-47.0); Hemoglobin 12.1 g/dl (12.0-16.0); Imm Gran Abs Auto 0.04 X10*3/uL (0.00-0.03); Imm Gran Pct Auto 0.4 % (0.0-0.4); Lymphocytes Absolute Auto 2.1 X10*3/uL (1.2-4.9); Lymphocytes Percent Auto 18.9 % (20-40); Mean Corpuscular Hemoglobin 26.2 pg (27.0-33.0); Mean Corpuscular Volume 79.4 fL (80.0-98.0); Mean Platelet Volume 9.4 fL (9.4-12.3); Monocytes Absolute Auto 0.6 X10*3/uL (0.1-1.2); Monocytes Percent Auto 5.3 % (2-11); Neutrophils Percent Auto 73.7 % (45-73); Platelet Count 428 X10*3/uL (160-400); Red Blood Count 4.62 X10*6/uL (4.20-5.50); Red Cell Distribution Width 15.5 % (11.0-16.0); White Blood Count 10.8 X10*3/uL (4.8-10.8)
[2023-02-08 11:39] LABS: Alanine Aminotransferase 15 U/L (0-31); Albumin Level 3.6 g/dL (3.5-5.0); Alkaline Phosphatase 98 U/L (39-117); Anion Gap 15 (12-20); Aspartate Amino Transferase 14 U/L (5-31); Bilirubin Total 0.7 mg/dL (0.0-1.0); Blood Urea Nitrogen 14 mg/dL (9-16); Calcium 8.9 mg/dL (8.4-10.2); Carbon Dioxide 25 mmol/L (22-29); Chloride 98 mmol/L (96-108); Cholesterol 195 mg/dL; Estimated Glomerular Filt Rate > 60; Glucose Fasting 96 mg/dL (60-99); HDL Cholesterol 56 mg/dL; Iron 33 mcg/dL (30-160); LDL Cholesterol Calculated 116 mg/dl; Percent Iron Saturation 14 % (15-50); Potassium 4.6 mmol/L (3.3-5.1); Sodium 133 mmol/L (135-145); Total Iron Binding Capacity 242 mcg/dL (228-428); Total Protein 7.2 g/dL (6.5-8.0); Triglycerides 117 mg/dL; Unsaturated Iron Binding 209 ug/dL
[2023-02-08 11:56] LABS: Folate 8.4 ng/mL (> or = 4.0); Vitamin B12 1094 pg/mL (200-900); Vitamin D 25-OH Total 11.1 ng/mL (>30)
== END 2023-02-08 09:24 | disposition home or self-care (01) ==
LOC: HO.LAB 09:23
PROVIDERS: PCP Internal Medicine; Visit Provider Internal Medicine
DX: D64.9 Anemia, unspecified (principal); E55.9 Vitamin D deficiency, unspecified; E53.8 Deficiency of other specified B group vitamins; E78.5 Hyperlipidemia, unspecified; I10 Essential (primary) hypertension
CPT/HCPCS: 36415; 80053; 80061; 82306; 82607; 82746; 83540; 85025

== ENCOUNTER 2023-05-23 15:07 | Outpatient (REF) | payer MEDICARE, MEDICAID, SELFPAY ==
[2023-05-23 18:32] LABS: Alanine Aminotransferase 11 U/L (0-31); Albumin Level 3.8 g/dL (3.5-5.0); Alkaline Phosphatase 94 U/L (39-117); Aspartate Amino Transferase 13 U/L (5-31); Bilirubin Direct 0.2 mg/dL (0.0-0.5); Bilirubin Total 0.5 mg/dL (0.0-1.0); Iron 36 mcg/dL (30-160); Percent Iron Saturation 16 % (15-50); Total Iron Binding Capacity 223 mcg/dL (228-428); Unsaturated Iron Binding 187 ug/dL
[2023-05-23 18:38] LABS: Ferritin 172 ng/mL (10-250)
== END 2023-05-23 15:08 | disposition home or self-care (01) ==
LOC: HO.LAB 15:07
PROVIDERS: PCP Internal Medicine; Visit Provider Internal Medicine
DX: D50.9 Iron deficiency anemia, unspecified (principal); K83.8 Other specified diseases of biliary tract; R06.02 Shortness of breath; R11.10 Vomiting, unspecified
CPT/HCPCS: 36415; 80076; 82728; 83540; 99202

== ENCOUNTER 2023-05-23 15:07 | Outpatient (AMB) | payer MEDICARE, MEDICAID, SELFPAY ==
--- NOTE | 2023-05-23 15:11 | MHC.OFFVIS ---
Intake Vital Signs 05/23/23 15:14 Height 5 ft 4 in Weight 136 lb 10.986 oz BMI 23.5 BP 130/73 Blood Pressure Location Lt brachial Position Sitting Pulse 97 Intake Visit Reasons: Alcohol abuse in rem Intake Note: Anayeli presents in the office as a new patient. CC: She has been having bleeding in her rectum. Lower abdomen pains. Sometimes she has black stools - but she is also on iron pills. Neonatal Surgeon Required: No Allergies Penicillins [PENICILLINS] Allergy (Intermediate, Verified 05/23/23 15:14) RASH HPI HPI Comments History of Present Illness Details 67 y.oF with hx of cognitive impairment due to hx of recurrent strokes and etOH use. Referred to our office for anemia. Pt here accompanied by her daughter/corporate human resources manager Jesi who reports: - frequent per rectal bleeding after defecation. Has increased in amount recently. - episodes of choking on foods. Texture varies from water to ice cream to noodles. Also regurgitates that food but then able to swallow just fine on retrial. No epigastric pain, abd pain, unintentional weight loss. - significant fatigue and shortness of breath that has been progressing over the last few months to the point that she is even unable to take a shower without getting significantly winded. Pt was also seen by her PCP recently for a physical and was noted to have iron deficiency anemia which prompted the referral. She has since been on iron supplements. Of note, on review of chart, was also noted to have dilated CBD on US elastography from 2020. LFTs normal. Pt lives with her daughter and dependent on all IADLs and most of the ADLs. Has limited communication. 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 Mother Diabetes Social History Housing: Apartment Alcohol intake: former Patient Tobacco Use Status: Former Tobacco user Tobacco use type: Cigarette e-Cigarette/Vaping Use: Never Used Second Hand Smoke Exposure: No service: No Current occupational status: disabled Cognitive needs: Yes Hearing needs: No Vision needs: No Review of Systems Const Unobtainable due to mental condition Physical Exam Vital Signs: Last Vital Signs Pulse 97 05/23/23 15:14 BP 130/73 05/23/23 15:14 BMI result Body Mass Index 23.5 Gen appear: NAD HEENT: nonicteric, no cervical lymphadenopathy Chest: CTA CVS: Regular S1/S2 Abd: soft, nontender, nondistended, bowel sounds + Ext: no peripheral edema Neuro: Flat affect, uses cane to ambulate Assessment & Plan Assessment & Plan (1) Iron deficiency anemia: Code(s): D50.9 - Iron deficiency anemia, unspecified (2) Dilated bile duct: Code(s): K83.8 - Other specified diseases of biliary tract (3) Regurgitation of food: Code(s): R11.10 - Vomiting, unspecified (4) Shortness of breath: Code(s): R06.02 - Shortness of breath Plan 1. Rectal bleeding/anemia: Ddx include hemorrhoidal bleeding, AVMs, large friable polyps, mass etc. Needs a diagnostic EGD/colo for further evaluation however given other s/sx will await work up (see below) first. In the meantime, repeat CBC and iron studies ordered. 2. Dilated CBD: Differentials include biliary obstruction from stone, stricture, periampullary adenoma etc. - Check LFTs - US Abd ordered. - If persistent CBD dilation of unknown etiology will obtain MRI abd 3. Dysphagia: Strongly suspect neuromotor dysfunction given underlying hx of CVA and dementia. - Modified barium swallow ordered 4. Fatigue/shortness of breath: Pt's daughter report upcoming appt [facility] for further eval. - Echo ordered to r/o CM jovani with hx of longstanding etOH use Follow up in 2 months Orders: Orders US abdomen complete Today K83.8 - Other specified diseases of biliary tract FL barium swallow modified Today R11.10 - Vomiting, unspecified Liver Panel Today D50.9 - Iron deficiency anemia, unspecified Ferritin Today D50.9 - Iron deficiency anemia, unspecified IRON PROFILE Today D50.9 - Iron deficiency anemia, unspecified CA echo transesophageal Today R06.02 - Shortness of breath Coding Level of Care Code New Pt Level 5 (64807) Diagnoses Iron deficiency anemia D50.9 Dilated bile duct K83.8 Regurgitation of food R11.10 Shortness of breath R06.02
[2023-05-23 15:14] VITALS: BP 130/73; PULSE 97; BMI 23.5
== END 2023-05-23 15:44 | disposition home or self-care (01) ==
PROVIDERS: PCP Internal Medicine; Visit Provider Internal Medicine
DX: D50.9 Iron deficiency anemia, unspecified (principal); K83.8 Other specified diseases of biliary tract; R11.10 Vomiting, unspecified; R06.02 Shortness of breath
CPT/HCPCS: 99205

== ENCOUNTER 2023-06-07 08:06 | Outpatient (REF) | payer MEDICARE, MEDICAID, SELFPAY ==
--- NOTE | ~2023-06-07 | US_ITS ---
EXAMINATION: US ABDOMEN COMPLETE CLINICAL INFORMATION: Dilated bile duct. COMPARISON: Ultrasound abdomen complete with elastography 12/30/2020. CT of abdomen and pelvis 10/21/2020. TECHNIQUE: Real-time imaging of the abdominal viscera. FINDINGS: PANCREAS: Normal. ABDOMINAL AORTA: The proximal, mid, and distal segments are normal in caliber. INFERIOR VENA CAVA: Visualized portions are normal. LIVER: Echotexture is normal. The liver is normal in size. The liver contour is normal. Parenchymal echogenicity is normal. No focal hepatic lesion. There is no intrahepatic biliary duct dilatation seen. GALLBLADDER: The gall bladder is normal in size. There is adenomyomatosis of the gallbladder wall. No definite gallstones. The gallbladder is normal in size. COMMON BILE DUCT: Normal in caliber measuring 0.8 cm in diameter. RIGHT KIDNEY: No hydronephrosis or renal calculi. The kidney measures 10.3 cm in maximum dimension. Right pelvic cyst in the upper pole measuring 1.2 x 0.8 x 1.2 cm. No imaging follow-up recommended. LEFT KIDNEY: Normal. No hydronephrosis. No renal calculi or focal parenchymal lesions. The kidney measures 9.4 cm in maximum dimension. SPLEEN: Normal. The spleen measures 9.2 cm in maximum dimension. FREE FLUID: None. US/US abdomen complete IMPRESSION: Adenomyomatosis of the gallbladder wall. Normal caliber intrahepatic and extra hepatic bile ducts.
== END 2023-06-07 08:07 | disposition home or self-care (01) ==
LOC: HO.US 08:06
PROVIDERS: PCP Internal Medicine; Visit Provider Internal Medicine
DX: K83.8 Other specified diseases of biliary tract (principal)
CPT/HCPCS: 76700

== ENCOUNTER → 2023-07-18 11:10 | Outpatient (REF) | payer MEDICARE, MEDICAID, SELFPAY ==
--- NOTE | 2023-07-18 11:16 | CA_ITS ---
Transthoracic Echocardiogram Patient (Last, First, Middle): Viktoria Ying, Gender: Female Date of : 1955 Age: 68 Procedure Date: 07/18/2023 Procedure Type: Transthoracic Echocardiogram Location: OP Height: 160.02 cm Weight: 68.04 kg BSA: 1.71 m2 Heart Rate: 77 bpm BP: 132 / 74 mmHg Outside Salesman: SB Referring MD: Julienne Cohen MD Symptoms: R06.02 - Shortness of breath Study Quality: Adequate ECG Rhythm: Sinus Conclusions: - The left ventricular systolic function is normal. The calculated ejection fraction is 58% by biplane method. - No obvious valvular pathology seen on this study. - There is mild dilatation of the ascending aorta measuring 4.20 cm. Findings Left Ventricle Normal left ventricular cavity size. The left ventricular systolic function is normal. The calculated ejection fraction is 58% by biplane method. There is no evidence of regional wall motion abnormalities. Evidence suggests grade I (mild) diastolic dysfunction. There is mild septal asymmetric hypertrophy. Right Ventricle Normal right ventricular cavity size and systolic function. Atria Both atria are normal in size. Aortic Valve There is a normal trileaflet aortic valve. There is mild calcification of the aortic valve. There is no aortic valve stenosis. There is trace (trivial) aortic valve regurgitation. Mitral Valve The mitral valve appears normal. There is mild mitral annular calcification. There is trace mitral valve regurgitation. There is no mitral valve stenosis. Pulmonic Valve The pulmonic valve is likely normal. Tricuspid Valve There is mild posterior tricuspid leaflet thickening. There is mild tricuspid valve regurgitation. There is no evidence of pulmonary hypertension. Great Vessels The sinuses of valsalva is normal in size. There is mild dilatation of the ascending aorta measuring 4.20 cm. Venous The inferior vena cava was not well visualized. Pericardium/Pleural There is a trivial pericardial effusion. Prior Study Comparison No prior study available for comparison. Recommendations, Care & Conclusions No obvious valvular pathology seen on this study. Measurements 2D Linear Measurements IVSd: 1.20 0.6-0.9/0.6-1.0 cm LVIDd: 4.90 3.9-5.3/4.2-5.9 cm LVIDd Index: 2.87 2.4-3.2/2.2-3.1 cm/m2 LVIDs: 3.20 2.0-3.6 cm LVPWd: 0.70 0.7-1.1 cm LA Diam: 3.90 2.7-3.8/3.0-4.0 cm LAIDs Index: 2.28 1.5-2.3 cm/m2 LV Mass: 204.65 67-162/88-224 g LV Mass Index: 119.68 43-95/49-115 g/m2 LVOT Diam: 1.90 3.0+(-)1.3 cm 2D Systolic Function EF 4C: 58.20 >55% EF 2C: 59.80 >55% EF BiP: 58.00 >55% Mitral Valve MV Pk E: 0.46 MV PK A: 0.74 MV Decel Time: 170.00 E/A: 0.60 E'Lateral: 5.22 E'Medial: 4.13 E/E' Med: 11.10 E/E' Lat: 8.80 PHT: 50.00 MVA PHT: 4.40 Decel Lawrence: 2.69 Aortic Valve AoV Pk Curt: 1.44 AoV Pk Grad: 8.00 MARIA: 2.04 AI Pk Curt: 3.97 AI Lawrence: 2.58 LVOT LVOT Pk Curt: 1.08 LVOT Mn Curt: 0.65 LVOT VTI: 0.20 LVOT Pk Grad: 5.00 LVOT Mn Grad: 2.00 LVOT Diam: 1.90 LVOT Area: 2.84 Diastolic Function MV Pk E: 0.46 MV Pk A: 0.74 E/A: 0.60 E'Medial: 4.13 E/E' Med: 11.10 E' Laterial: 5.22 E/E' Lat: 8.80 Right Ventricle TAPSE (mm): 17.10 TVS' Curt: 13.60 Tricuspid Valve TR Pk Curt: 2.39 TR Pk Grad: 23.00 RA Press: 3.00 RVSP: 26.00 Great Vessels Aorta Sinus of Valsalva: 2.90 2.0-3.5 cm Ao Asc: 4.20 2.1-3.4 cm Pulmonary Veins Pulm Vein S/D 1.70 Pulmonary Valve PV Pk Curt: 1.04 Peak PV Grad: 4.00 Updated in Other Vendor System with Status of Final Amado Barksdale MD electronically signed on 07/19/2023 9:10:46 AM with status of Final
== END ==
LOC: HO.CARD 11:10
PROVIDERS: PCP Internal Medicine; Visit Provider Internal Medicine
DX: R06.02 Shortness of breath (principal)
CPT/HCPCS: 93306

== ENCOUNTER → 2023-07-18 11:16 | Outpatient (BNV) | payer MEDICARE, MEDICAID, SELFPAY | PROVIDERS: PCP Internal Medicine; Visit Provider Internal Medicine | DX: I36.1 Nonrheumatic tricuspid (valve) insufficiency (principal); I34.81 Nonrheumatic mitral (valve) annulus calcification | CPT/HCPCS: 93306 ==

== ENCOUNTER 2024-01-26 17:32 | Outpatient (AMB) | payer MEDICARE, MEDICAID, SELFPAY ==
--- NOTE | 2024-01-26 17:34 | A.OFFPC_ITS ---
Vital Signs 01/26/24 17:35 01/27/24 12:20 Height 5 ft 4 in Weight 141 lb BMI 24.2 BP 160/72 H 160/70 H Blood Pressure Location Lt brachial Lt brachial Position Sitting Sitting Intake Visit Reasons: PE Intake Note: Patient here for a physical exam Tape Duplicator Required: No Accompanied by: Daughter Allergies Penicillins [PENICILLINS] Allergy (Intermediate, Verified 01/26/24 17:42) RASH Medication List - Last Reconciled 01/26/24 by An Barney MD amlodipine 5 mg PO DAILY donepezil mg PO ferrous sulfate 325 mg PO DAILY 90 days losartan 25 mg PO DAILY 90 days Tobacco use date assessed: 01/26/24 Fall risk assessment: No Falls in past year Last assessed Fall Risk: 01/26/24 Dental Screening Dental Screen Date: 01/26/24 Did you have a dental visit in the last 12 months?: No Did you have a dental problem in the last 6 months where you did not have access to dental care?: No Was dental information given to patient?: Patient declined HPI HPI Comments History of Present Illness Details This is a 68-year-old female with dementia that comes for her physical exam accompanied by daughter which is the pediatric audiologist. She has urge urinary incontinence due to dementia. Walks with a cane for gait stability. Oriented only to person and place but not to time. Mammogram was over a year ago. Colonoscopy pending. No chest pain or shortness of breath. 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 Mother Diabetes Social History Housing: Apartment Alcohol intake: former Patient Tobacco Use Status: Former Tobacco user Tobacco use type: Cigarette e-Cigarette/Vaping Use: Never Used Second Hand Smoke Exposure: No service: No Current occupational status: disabled Cognitive needs: Yes Hearing needs: No Vision needs: No Questionnaire PHQ-9 Over the last 2 weeks, how often have you been bothered by any of the following problems? 1. Little interest or pleasure in doing things: not at all 2. Feeling down, depressed, or hopeless: not at all 3. Trouble falling or staying asleep, or sleeping too much: not at all 4. Feeling tired or having little energy: not at all 5. Poor appetite or overeating: not at all 6. Feeling bad about yourself - or that you are a failure or have let yourself or your family down: not at all 7. Trouble concentrating on things, such as reading the newspaper or watching television: not at all 8. Moving or speaking so slowly that other people could have noticed. Or the opposite - being so fidgety or restless that you have been moving around a lot more than usual: not at all 9. Thoughts that you would be better off or of hurting yourself in some way: not at all Total score: 0 Depression Screening Interpretation: Negative Depression Screening Done: Yes 68045 - PHQ-9 Billing: Yes Source: Developed by Drs. Tutu Ricardo, Kaya Sharma, Rosendo Sung and colleagues, with an educational angelo from [employer]. Thrive Questionnaire Date Thrive assessed: 01/26/24 I am a: Patient What is your living situation today?: I have a steady place to live Within the past 12 months, did the food you bought not last and you didn't have the money to get more?: Never true Within the past 12 months, did you worry whether your food would run out before you got money to buy more?: Never true Do you have trouble paying for medicines?: No Do you have trouble getting transportation to medical appointments?: No Do you have trouble paying your heating and electricity bill?: No Do you have trouble taking care of your child, family member or friend?: No Do you have trouble with day-to-day activities such as bathing, preparing meals, shopping, managing finances, etc.?: Yes Are you currently unemployed and looking for a job?: No Are you interested in more education?: No Please select the resources that you would like help with: None Currently or been in a relationship where the following occur: no concerns reported THRIVE Score: 0 AUDIT C Alcohol Use Questionnaire (AUDIT-C) 1. How often do you have a drink containing alcohol?: Never Total Score: 0 Score Reviewed/Action Taken: No CELIA-7 AMB Questionnaire CELIA-7 Date CELIA - 7 assessed: 01/26/24 Feeling nervous, anxious, or on edge: 0 = Not at all Not being able to stop or control worryin = Not at all Worrying too much about different things: 0 = Not at all Trouble relaxin = Not at all Being so restless that it is hard to sit still: 0 = Not at all Becoming easily annoyed or irritable: 0 = Not at all Feeling afraid as if something awful might happen: 0 = Not at all Total CELIA-7 score (0-4 normal; 5-9 mild; 10-14 moderate; 15-21 severe): 0 Source: Developed by Drs. Tutu Ricardo, Kaya Sharma, Rosendo Sung and colleagues, with an educational angelo from [employer]. CELIA-7 Assessment Billing CELIA-7 Assessment Tool: CELIA-7 Assessment 93396 Review of Systems Const All systems reviewed & are unremarkable except as noted in HPI and below Eyes Reports no additional complaints, Denies change in vision and Denies other visual disturbances Card Denies chest pain at rest, Denies chest pain with activity, Denies edema, Denies irregular heart rhythm, Denies claudication, Denies dyspnea, Denies dyspnea on exertion, Denies orthopnea, Denies paroxysmal nocturnal dyspnea and Denies slow heart rate Resp Denies cough, Denies dyspnea and Denies dyspnea on exertion GI Denies abdominal pain, Denies change in bowel habits, Denies excessive flatus, Denies nausea and Denies vomiting Denies urinary incontinence, Denies urinary hesitancy and Denies urinary urgency Physical exam (Primary Care) Vital Signs: Last Vital Signs BP 160/72 H 01/26/24 17:35 BMI result Body Mass Index 24.2 Tobacco/Smoking Status: Tobacco use Status Tobacco use date assessed 01/26/24 01/26/24 17:45 Patient Tobacco Use Status Former Tobacco user 01/26/24 17:35 Tobacco use type Cigarette 01/26/24 17:35 e-Cigarette/Vaping Use Never Used 01/26/24 17:35 PHQ-9: PHQ-9 Score PHQ-9: Total score 0 01/26/24 17:58 Depression Screening Interpretation: Negative Thrive Assessment: Date of Thrive Assessment Date Thrive assessed 01/26/24 01/26/24 17:45 Currently or been in a relationship where the following occur: no concerns reported [facility] Head: Yes normal to inspection, Yes normocephalic and Yes atraumatic Ears: external ears normal Eyes General: appearance normal, both eyes and all related structures Eyelids: Yes eyelids normal Conjunctivae: conjunctivae normal Neck Neck: Yes normal visual inspection and Yes supple Resp Effort & Inspection: normal respiratory effort Auscultation: clear to auscultation bilaterally Cardio Jugular venous distension: no JVD Rate: regular rate Rhythm: regular rhythm Heart sounds: S1 normal heart sound present and S2 normal heart sound present GI Inspection: Yes normal to inspection Palpation (GI): Soft to palpation and nontender Auscultation: normal bowel sounds Skin General skin exam: no rashes or lesions noted Extrem General: Yes full ROM Results AMB Urinalysis, Automated UA Leukoctes 1 Kartik/uL Last Edit by JOYCE Abarca on 01/26/24 18:02 UA Nitrite Positive Last Edit by JOYCE Abarca on 01/26/24 18:02 UA Urobilinogen 0.2 mg/dL Last Edit by JOYCE Abarca on 01/26/24 18: 02 UA Protein 1 mg/dL Last Edit by Tyson Mcclure Leisa on 01/26/24 18:02 UA pH 6.0 Last Edit by Tyson Mcclure Leisa on 01/26/24 18:02 UA Blood 1 Poli/uL Last Edit by Tyson Mcclure COUNTS INCLUDE 234 BEDS AT THE [facility] on 01/26/24 18:02 UA Specific [place] 1.020 Last Edit by JOYCE Abarca on 01/26/24 18 :02 UA Ketone Negative Last Edit by JOYCE Abarca on 01/26/24 18:02 UA Bilirubin 0 mg/dL Last Edit by JOYCE Abarca on 01/26/24 18:02 UA Glucose 0 mg/dL Last Edit by JOYCE Abarca on 01/26/24 18:02 Results Reviewed Results Reviewed: Laboratory Last Values Urine pH (Auto) 6.0 01/26/24 17:57 Specific [place] (Auto) 1.020 01/26/24 17:57 Urine Protein (Auto) 1 mg/dL 01/26/24 17:57 Glucose (UA)(Auto) 0 mg/dL 01/26/24 17:57 Urine Ketones (Auto) Negative 01/26/24 17:57 Urine Blood (Auto) 1 Poli/uL 01/26/24 17:57 Urine Nitrite (Auto) Positive 01/26/24 17:57 Urine Bilirubin (Auto) 0 mg/dL 01/26/24 17:57 Urine Urobilinogen (Auto) 0.2 mg/dL 01/26/24 17:57 Leukocyte Esterase (Auto) 1 Kartik/uL 01/26/24 17:57 Assessment and Plan Assessment & Plan (1) Physical exam: Code(s): Z00.00 - Encounter for general adult medical examination without abnormal findings Plan: Repeat in a year. (2) Dementia: Code(s): F03.90 - Unspecified dementia, unspecified severity, without behavioral disturbance, psychotic disturbance, mood disturbance, and anxiety Plan: Continue donepezil. (3) Lacunar infarction: Code(s): I63.81 - Other cerebral infarction due to occlusion or stenosis of small artery Plan: Keep blood pressure within goal. Orders: Orders Lipid Panel 01/26/24 Z00.00 - Encounter for general adult medical examination without abnormal findings IRON PROFILE 01/26/24 D64.9 - Anemia, unspecified Vitamin D 25-OH Total 01/26/24 E55.9 - Vitamin D deficiency, unspecified AMB Urinalysis Automated 01/26/24 R30.0 - Dysuria MM screening mammo BI 01/26/24 Z12.31 - Encounter for screening mammogram for malignant neoplasm of breast Comprehensive [place]. Panel Fast 01/26/24 Z00.00 - Encounter for general adult medical examination without abnormal findings Complete Blood Count Auto Diff 01/26/24 D64.9 - Anemia, unspecified Vitamin B12 and Folate 01/26/24 E53.8 - Deficiency of other specified B group vitamins Medications: New nitrofurantoin macrocrystal must administer with a meal/food 100 mg PO BID 7 days 14 caps 0RF [adult diapers pull-ups] As directed 120 ea 11RF F03.90 - Unspecified dementia, unspecified severity, without behavioral disturbance, psychotic disturbance, mood disturbance, and anxiety, I63.81 - Other cerebral infarction due to occlusion or stenosis of small artery, N39.41 - Urge incontinence Coding Level of Care Code Est Pt Prev Care 40-64y(43322) Diagnoses Physical exam Z00.00 Dementia F03.90 Lacunar infarction I63.81 Additional Codes CELIA-7 Assessment Billing - CELIA-7 Assessment Tool: CELIA-7 Assessment 88741 ([id number]) Time Spent (min) 32
[2024-01-26 17:35] VITALS: BP 160/72; BMI 24.2
[2024-01-27 12:20] VITALS: BP 160/70
== END 2024-01-26 17:50 | disposition home or self-care (01) ==
PROVIDERS: Visit Provider Internal Medicine
DX: Z00.00 Encounter for general adult medical examination without abnormal findings (principal); F03.90 Unspecified dementia, unspecified severity, without behavioral disturbance, psychotic disturbance, mood disturbance, and anxiety; I63.81 Other cerebral infarction due to occlusion or stenosis of small artery
CPT/HCPCS: 81003; 99397

== ENCOUNTER 2024-02-29 09:33 | Outpatient (AMB) | payer MEDICARE, MEDICAID, SELFPAY ==
[2024-02-29 09:35] VITALS: BP 124/76; PULSE 81; O2SAT 98; BMI 24.2
--- NOTE | 2024-02-29 09:35 | A.OFFVIS_ITS ---
Vital Signs 02/29/24 09:35 Height 5 ft 4 in Weight 141 lb BMI 24.2 BP 124/76 Blood Pressure Location Rt brachial Position Sitting Pulse 81 Pulse Source Doppler Pulse Oximetry (%) 98 Oxygen Delivery Method Room Air Intake Visit Reasons: Cough Allergies Penicillins [PENICILLINS] Allergy (Intermediate, Verified 02/29/24 09:41) RASH HPI HPI Cough: Details: 68-year-old lady, nonsmoker, with underlying history of prior CVAs and likely dysphagia referred for evaluation of chronic intermittent cough ongoing for last 5-6 months that is worse with food intake and sometimes accompanied by coughing up food. Per patient daughter, patient also had prior chest x-ray demonstrating lung nodule that she is worried about. There is no family history of lung disease. 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 Mother Diabetes Social History Housing: Apartment Alcohol intake: former Patient Tobacco Use Status: Former Tobacco user Tobacco use type: Cigarette e-Cigarette/Vaping Use: Never Used Second Hand Smoke Exposure: No service: No Current occupational status: disabled Cognitive needs: Yes Hearing needs: No Vision needs: No Review of Systems Const Denies daytime sleepiness, Denies excessive sweating, Denies fatigue, Denies fever(s), Denies lethargy, Denies malaise, Denies night sweats, Denies snoring and Denies weight loss Eyes Denies blurry vision and Denies itchy eyes ENT Denies nasal congestion, Denies post nasal drip, Denies sinus pain, Denies sinus pressure and Denies other ( Thrush) Card Denies chest pain, Denies pedal edema, Denies dyspnea, Denies orthopnea and Denies paroxysmal nocturnal dyspnea Resp Denies cough, Denies hemoptysis, Denies excessive phlegm production, Denies dyspnea, Denies snoring and Denies wheezing GI Denies abdominal pain and Denies heartburn Musc Denies myalgias, Denies arthralgias and Denies joint swelling Skin/Breast Denies rash Neuro Denies memory loss and Denies seizure-like activity Psych Denies abnormal sleep pattern, Denies anxiety and Denies memory loss Endo Denies excessive sweating, Denies fatigue and Denies heat intolerance Reza/Lymph Denies easy bruising Aller/Immun Denies itchy eyes, Denies seasonal rhinorrhea and Denies wheezing Physical Exam Vital Signs: Last Vital Signs Pulse 81 02/29/24 09:35 BP 124/76 02/29/24 09:35 Pulse Ox 98 02/29/24 09:35 Oxygen Delivery Method Room Air 02/29/24 09:35 BMI result Body Mass Index 24.2 Const General: no acute distress and alert Nutritional Appearance: not obese Orientation/consciousness: Other orientation findings ( oriented) HEENT Head: Yes atraumatic Eyes General: appearance normal, both eyes and all related structures Sclerae: sclerae normal EOM: EOMs intact bilaterally Neck Neck: Yes supple Lymphatic: no lymphadenopathy noted Resp Effort & Inspection: normal respiratory effort and no use of accessory muscles Auscultation: clear to auscultation bilaterally Cardio Rate: regular rate Rhythm: regular rhythm Heart sounds: no gallops, no murmurs and no rubs Skin General skin exam: other ( warm) Extrem General: No clubbing, No cyanosis and No edema Assessment & Plan Assessment & Plan (1) Cough: Code(s): R05.9 - Cough, unspecified Category: Medical Plan: Appears to be related to food intake, likely underlying pulmonary aspiration. Will obtain modified barium swallowing study. (2) Pulmonary nodule: Code(s): R91.1 - Solitary pulmonary nodule Category: Medical Plan: Will obtain CT chest for further evaluation. Orders: Orders CT chest wo IV con Today R91.1 - Solitary pulmonary nodule [place] barium swallow modified Today R05.9 - Cough, unspecified, R11.10 - Vomiting, unspecified Coding Level of Care Code New Pt Level 4 (10191) Diagnoses Cough R05.9 Pulmonary nodule R91.1
== END 2024-02-29 09:59 | disposition home or self-care (01) ==
PROVIDERS: PCP Internal Medicine; Visit Provider Internal Medicine Pulmonary Disease
DX: R05.9 Cough, unspecified (principal); R91.1 Solitary pulmonary nodule
CPT/HCPCS: 99204

== ENCOUNTER → 2024-02-29 09:33 | Outpatient (BNVA) | payer MEDICARE, MEDICAID, SELFPAY | PROVIDERS: PCP Internal Medicine; Visit Provider Internal Medicine Pulmonary Disease | DX: R05.9 Cough, unspecified (principal); R91.1 Solitary pulmonary nodule | CPT/HCPCS: 99202 ==

== ENCOUNTER 2024-08-23 11:05 | Outpatient (REF) | payer MEDICARE, MEDICAID, SELFPAY ==
[2024-08-23 17:33] LABS: Urine Cytology See Pathology rpt
== END 2024-08-23 11:06 | disposition home or self-care (01) ==
LOC: HO.LNP 11:05
PROVIDERS: PCP Internal Medicine; Visit Provider Nurse Practitioner Family
DX: N39.0 Urinary tract infection, site not specified (principal); R82.90 Unspecified abnormal findings in urine; N39.46 Mixed incontinence
CPT/HCPCS: 51798; 81003; 87086; 87088; 87186; 88112; 99202

== ENCOUNTER → 2024-08-23 11:05 | Outpatient (AMB) | payer MEDICARE, MEDICAID, SELFPAY ==
--- NOTE | 2024-08-23 11:08 | A.OFFVIS_ITS ---
Intake Visit Reasons: Urinary tract infection Intake Note: New Patient presents for initial visit for Urology Medications: Blood Thinner: Allergies Penicillins [PENICILLINS] Allergy (Intermediate, Verified 08/23/24 11:39) RASH Medication List - Last Reconciled 08/23/24 by ZANA Mckinney-BC [adult diapers pull-ups As directed] amlodipine 5 mg PO DAILY donepezil mg PO ferrous sulfate 325 mg PO DAILY 90 days losartan 25 mg PO DAILY 90 days HPI Comments Details: Viktoria is a 69-year-old female patient of Dr. Correia who was accompanied by her daughter Fabiola at today's office visit. She has a past medical history of insomnia, dementia, anxiety, recurrent depression, lacunar infarction, abnormal brain MRI, and history of alcohol abuse. She presents to the office today as a new patient for recurrent urinary tract infections. In discussion with the daughter who provides much of today's history as patient suffers from dementia and is a poor historian she reports having followed up with PCP for ongoing urinary tract infections at which time urology referral was made for further assessment evaluation. When asked she denies any history of constipa tion. Patient's daughter reports typical UTI symptoms very given patient has baseline confusion. She reports more recently UTI symptoms have been foul- smelling urine. Patient's daughter reports she believes patient has a UTI as she has been having cloudy and foul-smelling urine. In office urinalysis with 1+ leukocytes positive nitrates. PVR 0 mL. We discussed at length potential causes of recurrent urinary tract infections. We discussed obtaining retroperitoneal ultrasound for further assessment evaluation and initiation of Estrace verses Vagifem. Patient's daughter reports patient has baseline urinary incontinence due to her forgetfulness. She denies patient to report hematuria, flank pain, fever, and or chills. 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 Mother Diabetes Social History Housing: Apartment Alcohol intake: former Patient Tobacco Use Status: Former Tobacco user Tobacco use type: Cigarette e-Cigarette/Vaping Use: Never Used Second Hand Smoke Exposure: No service: No Current occupational status: disabled Cognitive needs: Yes Hearing needs: No Vision needs: No Review of Systems Const Unobtainable due to mental condition Physical Exam Const General: cooperative, healthy appearing, comfortable, no acute distress, well developed, alert and awake Orientation/consciousness: patient oriented x3 Limitations: ambulation with cane HEENT Head: Yes normal to inspection, Yes normocephalic and Yes atraumatic Ears: hearing grossly normal bilaterally Eyes General: appearance normal, both eyes and all related structures Neck Neck: Yes normal visual inspection and Yes trachea midline Chest Chest palpation & inspection: normal inspection of the chest Resp Effort & Inspection: normal respiratory effort and able to speak in complete sentences Cardio Rate: regular rate GI Inspection: Yes normal to inspection General: Yes no CVA tenderness Back/Spine/Pelvis Back: no CVA tenderness Skin General skin exam: no rashes or lesions noted Neuro General: patient oriented x3 Extrem General: Yes normal to inspection Psych Appearance: grossly normal and well kempt Speech and movement: Normal speech and movement present and Clear speech present Affect: normal affect Attitude: cooperative Insight: Limited insight present (Psych) Judgement: Limited judgement present (Psych) Office Procedures Post Void Residual Post Residual Void Post Void Residual (PVR): 0 [id number]-[id number] Void Residual by ultrasound Results AMB Urinalysis, Automated UA Leukoctes 70 Kartik/uL Last Edit by Aspen Coulter on 08/23/24 12:02 UA Nitrite Last Edit by Aspen Coulter on 08/23/24 12:02 UA Urobilinogen 0.2 mg/dL Last Edit by Aspen Coulter on 08/23/24 12:02 UA Protein 15 mg/dL Last Edit by Josuemando Nancyru on 08/23/24 12:02 UA pH 6.0 Last Edit by Josuemando Nancyru on 08/23/24 12:02 UA Blood 80 Poli/uL Last Edit by Aspen Nancyru on 08/23/24 12:02 UA Specific [place] 1.020 Last Edit by Josuemando Nancyru on 08/23/24 12:02 UA Ketone Last Edit by Josuemando Nancyru on 08/23/24 12:02 UA Bilirubin 0 mg/dL Last Edit by Aspen Nancyru on 08/23/24 12:02 UA Glucose 0 mg/dL Last Edit by Aspen Nancyru on 08/23/24 12:02 Results Reviewed Results Reviewed: Laboratory Last Values Urine pH (Auto) 6.0 08/23/24 12:01 Specific [place] (Auto) 1.020 08/23/24 12:01 Urine Protein (Auto) 15 mg/dL 08/23/24 12:01 Glucose (UA)(Auto) 0 mg/dL 08/23/24 12:01 Urine Blood (Auto) 80 Poli/uL 08/23/24 12:01 Urine Bilirubin (Auto) 0 mg/dL 08/23/24 12:01 Urine Urobilinogen (Auto) 0.2 mg/dL 08/23/24 12:01 Leukocyte Esterase (Auto) 70 Kartik/uL 08/23/24 12:01 Assessment & Plan Assessment & Plan (1) Cloudy urine: Code(s): R82.90 - Unspecified abnormal findings in urine Category: Medical (2) Foul smelling urine: Code(s): R82.90 - Unspecified abnormal findings in urine Category: Medical (3) Urinary tract infection: Code(s): N39.0 - Urinary tract infection, site not specified Category: Medical (4) Recurrent UTI: Code(s): N39.0 - Urinary tract infection, site not specified Category: Medical (5) Urinary incontinence, mixed: Code(s): N39.46 - Mixed incontinence Category: Medical Plan In office urinalysis results with the patient and her daughter today; as noted above; will send for urine culture as well as urine cytology; will await urine culture results for potential treatment. Discussed at length potential causes of recurrent urinary tract infections Start Vagifem as discussed and prescribed. Will obtain retroperitoneal ultrasound for further assessment evaluation. PVR 0 mL. Discussed UTI prevention with D mannose supplement, vitamin-C, increasing fluid intake, behavioral therapy with timed voiding, perineal hygiene and postcoital voiding, and management of constipation with stool softeners and increased fiber intake. Discussed possible near future in office cystoscopy and or microgen if symptoms persist. Follow-up in 3 months with imaging and PVR; or sooner with any issues, concerns, and or questions. Orders: Orders Urine Cytology 08/23/24 Z13.9 - Encounter for screening, unspecified AMB Post Void Residual by ultrasound 08/23/24 N39.41 - Urge incontinence AMB Urinalysis Automated 08/23/24 Z13.9 - Encounter for screening, unspecified Urine Culture 08/23/24 N39.0 - Urinary tract infection, site not specified US retroperitoneal comp 08/23/24 N39.0 - Urinary tract infection, site not specified Medications: New estradiol (Vagifem) 10 mcg vaginal 2XW 90 days 26 tabs 1RF Patient Instructions: The patient had an opportunity to ask questions regarding the treatment plan. All questions were answered. Physical exam, labs, and imaging were discussed and reviewed in detail. As well as risks, benefits, and discussion of treatment choices. No major barriers to understanding were identified. The patient expressed understanding and agreement with the above treatment plan. The patient was made aware they should contact our office by phone for worsening of their current condition, the appearance of new symptoms, or with any questions or concerns. Compliance is encouraged with any medications and follow up testing that is ordered. It is a privilege to be allowed the opportunity to participate in? your urological care.? Again, if you have any questions or concerns If you have any questions or concerns please do not hesitate to contact me. The office is [phone]. This note is constructed using voice recognition software. While every effort has been made to ensure accuracy demand planning analyst errors may have been included. Yours sincerely, MELISSA Mckinney Coding Level of Care Code New Pt Level 4 (56457) Diagnoses Cloudy urine R82.90 Foul smelling urine R82.90 Urinary tract infection N39.0 Recurrent UTI N39.0 Urinary incontinence, mixed N39.46 CPT Codes Post Residual Void - PVR CPT Code: 66155-Evqb Void Residual by ultrasound ([id number]) Time Spent (min) 35
== END ==
PROVIDERS: PCP Internal Medicine; Visit Provider Nurse Practitioner Family
DX: R82.90 Unspecified abnormal findings in urine (principal); N39.0 Urinary tract infection, site not specified; N39.46 Mixed incontinence
CPT/HCPCS: 99204

== ENCOUNTER 2024-11-06 10:03 | Outpatient (REF) | payer MEDICARE, MEDICAID, SELFPAY ==
--- NOTE | ~2024-11-06 | US_ITS ---
CLINICAL HISTORY: N39.0 - Urinary tract infection, site not specified Retroperitoneal ultrasound Comparison: None Findings: The kidneys are normal in echotexture bilaterally. No hydronephrosis. The right kidney is normal in size, measuring 9.5cm in length. The left kidney is normal in size, measuring 9.6cm in length. There is a lesion at the right aspect of the bladder measuring 1.1 x 1.0 x 1.3 cm. Prevoid volume 224 mL. Postvoid volume 23.6 mL. Ureteral jets are visualized bilaterally. Impression: 1.3 cm lesion in the bladder. Follow up with urology to exclude malignancy. This document has been electronically signed by: Ursula Alatorre MD on 11/07/2024 21:26:54
== END 2024-11-06 10:04 | disposition home or self-care (01) ==
LOC: HO.HMGCX 10:03
PROVIDERS: PCP Internal Medicine; Visit Provider Nurse Practitioner Family
DX: N39.0 Urinary tract infection, site not specified (principal)
CPT/HCPCS: 76770

== ENCOUNTER → 2024-11-06 10:04 | Outpatient (BNV) | payer MEDICARE, MEDICAID, SELFPAY | PROVIDERS: PCP Internal Medicine; Visit Provider Radiology Diagnostic Radiology | DX: N39.0 Urinary tract infection, site not specified (principal) | CPT/HCPCS: 76770 ==

== ENCOUNTER 2024-12-24 10:10 | Emergency (ER) | payer MEDICARE, MEDICAID, SELFPAY ==
--- NOTE | ~2024-12-24 | XR_ITS ---
EXAMINATION: XR FINGER, RIGHT CLINICAL INFORMATION: thumb pain, fall COMPARISON: None available. TECHNIQUE: Three views of the right thumb. FINDINGS: The bones and soft tissues are normal. No fracture. Alignment is anatomic. Joint spaces are maintained. XR/XR finger RT min 2V IMPRESSION: Normal finger radiographs. Electronically signed by: Carlos Aviles MD 12/24/2024 12:33 PM [facility]
--- NOTE | ~2024-12-24 | XR_ITS ---
EXAMINATION: XR RIBS, LEFT CLINICAL INFORMATION: pain, fall COMPARISON: Chest radiograph 12/14/2022. TECHNIQUE: 3 views of the left ribs were obtained. FINDINGS: Lungs are clear. No consolidation, pneumothorax, or pleural effusion. The cardiomediastinal silhouette and pulmonary vasculature are normal. There are minimally displaced fractures of the left lateral fourth and fifth ribs. There is an equivocal old versus acute fracture of the left anterior third rib. Remainder of the osseous structures appear intact. XR/XR ribs LT min 3V w CXR1V IMPRESSION: 1. No active pulmonary disease. 2. Minimally displaced fractures of the left lateral fourth and fifth ribs, and possibly the left lateral third. Electronically signed by: Carlos Aviles MD 12/24/2024 12:38 PM [facility]
--- NOTE | ~2024-12-24 | CT_ITS ---
EXAMINATION: CT HEAD WITHOUT IV CONTRAST HISTORY: fall. TECHNIQUE: Unenhanced helical CT of the head was performed per standard departmental protocol. Coronal and sagittal reformats of the head were also evaluated. One or more of the following techniques was used for dose reduction: Automated exposure control, adjustment of the mA and/or kV according to patient size, use of iterative reconstruction technique. DLP: 606.56 mGy-cm COMPARISON: Correlation is made with an MRI of the brain dated 01/07/2021. FINDINGS: BRAIN: There is diffuse prominence of the ventricular system and cortical sulci, consistent with atrophy. Periventricular and subcortical white matter hypodensities are noted which are nonspecific, but often seen in the setting of small vessel ischemic disease. There is no mass effect or midline shift. No intra- or extra-axial fluid collections are identified. SINUSES: There is fluid in the bilateral maxillary and sphenoid sinuses. There is mucosal thickening in the bilateral ethmoid sinuses. The mastoid air cells and middle ear cavities are well pneumatized. ORBITS: The visualized orbits are unremarkable. BONES/SOFT TISSUES: The extracranial soft tissues are unremarkable. The calvarium is intact. No suspicious lytic or sclerotic lesions. CT/CT head/brain wo IV con IMPRESSION: 1. No acute intracranial abnormality. 2. Bilateral maxillary and sphenoid sinusitis. Electronically signed by: Tutu Loera MD 12/24/2024 12:48 PM [facility]
--- NOTE | ~2024-12-24 | XR_ITS ---
EXAMINATION: XR SHOULDER, LEFT CLINICAL INFORMATION: fall COMPARISON: None available. TECHNIQUE: AP external rotation, Grashey, scapular Y, and axillary views of the left shoulder. FINDINGS: No acute cortical disruption or malalignment. No lytic or blastic lesions. No metallic or radiopaque foreign body. XR/XR shoulder LT min 2V IMPRESSION: No acute fracture or dislocation. Electronically signed by: Art Li MD 12/24/2024 12:26 PM [facility]
--- NOTE | ~2024-12-24 | CT_ITS ---
EXAMINATION: CT CERVICAL SPINE WITHOUT CONTRAST CLINICAL INFORMATION: Neck trauma. COMPARISON: None available. TECHNIQUE: Spiral CT imaging of the cervical spine performed in axial plane without contrast. Multiplanar reformatted images were constructed from the axial data set. This CT examination was performed using dose optimization techniques as appropriate, variously including the following: *Automated exposure control *Adjustment of mA and/or kV according to patient size (this includes techniques or standardized protocols for targeted exams where dose is matched to indication/reason for exam; i.e. extremities or head) *Use of iterative reconstruction technique FINDINGS: Study is degraded by motion artifact, limiting sensitivity for subtle findings. CORONAL ALIGNMENT: -Normal SAGITTAL ALIGNMENT: -Normal lordosis. No subluxations. C1-C2 AND CRANIOCERVICAL JUNCTION: -Intact and aligned. Mild to moderate degenerative arthritis. VERTEBRAL BODIES AND FACETS: -No fracture, compression deformity, traumatic subluxation, or suspicious bone lesion. -Facets are normally aligned without subluxation. There are mild multilevel degenerative facet changes bilaterally. DISCS: -Mild diffuse disc degeneration present, most significant at C6-7. PREVERTEBRAL AND PARAVERTEBRAL SOFT TISSUES: -Normal. -Normal thyroid. -Mild bilateral carotid bulb calcification. LUNG APICES: -Mild scarring in the right greater than left lung apices. Lung apices otherwise clear. CT/CT cervical spine wo IV con IMPRESSION: 1. Within the confines of motion artifact, there is no CT evidence of acute cervical spine fracture or injury. Electronically signed by: Carlos Aviles MD 12/24/2024 01:01 PM [facility]
[2024-12-24 11:16] VITALS: BP 135/61; PULSE 81; RESP 16; TEMP 36.5; O2SAT 98; BMI 25.2
--- NOTE | 2024-12-24 11:17 | ED_ITS ---
HPI - Fall General Chief Complaint: Fall Stated Complaint: fall Time Seen by Provider: 12/24/24 12:54 Source: patient, family and old records reviewed Mode of arrival: wheelchair Limitations: no limitations History of Present Illness ED Provider: HOANG HUANG Narrative: 69 yo female wtih PMH of UTI, HTN, anemia, anxiety and depression, CVA, cognitive impairment, not on thinners here with c/o fall in bedroom trip and fall over nightstand no headstrike or LOC but has pain in L shoulder - she is R handed. She has no other complaints other than L shoulder pain. She is not confused or having a fever/altered from baseline. She has no leg pain/hip pain. She got right up. She came as the L shoulder is still painful. MD complaint: fall Onset (ago): day(s) (1) Fall from: standing Fall witnessed: no Place fall occurred: home Loss of consciousness: none Length of LOC: second(s) Prolonged down time: no Symptoms prior to fall: none Context: tripped/slipped Location of injury - extremities: left: shoulder Severity: moderate Quality: aching Associated symptoms (after fall): denies Related Data Home Medications ?Medication ?Instructions ?Recorded ?Confirmed donepezil 5 mg tablet mg PO 11/17/21 08/23/24 Previous Rx's ?Medication ?Instructions ?Recorded ferrous sulfate 325 mg (65 mg 325 mg PO DAILY 90 days #90 tabs 05/23/23 iron) tablet losartan 25 mg tablet 25 mg PO DAILY 90 days #90 tabs 06/11/23 nitrofurantoin macrocrystal 100 mg 100 mg PO BID 14 days #28 caps 08/25/24 capsule adult diapers pull-ups #120 ea 08/30/24 estradiol 0.01% (0.1 mg/gram) 1 appful vaginal 2XW #42.5 grams 09/18/24 vaginal cream amlodipine 5 mg tablet 5 mg PO DAILY #90 tabs 11/14/24 cefuroxime axetil 500 mg tablet 500 mg PO BID 7 days #14 tabs 12/24/24 lidocaine 5 % topical patch 1 patch topical DAILY #30 ea 12/24/24 Allergies Allergy/AdvReac Type Severity Reaction Status Date / Time Penicillins [PENICILLINS] Allergy Intermediate RASH Verified 12/24/24 11:20 Review of Systems Review of Systems: Constitutional : No Fever, No Chills ENT/Mouth : No Ear Pain, No Hoarseness, No sore throat Eyes: No Eye Pain, No Swelling, No Redness, No Foreign Body Cardiovascular : No Chest Pain, No SOB Respiratory : No Cough, No Dyspnea Gastrointestinal : No Nausea, No Vomiting, No Diarrhea, No abdominal Pain Genitourinary : No Dysuria, No Hematuria Musculoskeletal : positive joint pain, No Myalgias, No Joint Swelling Skin : No Skin lacerations, No rash Neuro : No Weakness, No Numbness, No Loss of Consciousness, No Dizziness, No Headache All other systems reviewed and are negative [facility] Past Medical History Attestation statement: The following information was validated with the patient. 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 Mother Diabetes Social History Social History Housing: Apartment Alcohol intake: former Patient Tobacco Use Status: Former Tobacco user Tobacco use type: Cigarette e-Cigarette/Vaping Use: Never Used Second Hand Smoke Exposure: No service: No Current occupational status: disabled Cognitive needs: Yes Hearing needs: No Vision needs: No Physical Exam Vital Signs: Vital Signs: Last Vital Signs Temp 97.7 F 12/24/24 11:16 Pulse 81 12/24/24 11:16 Resp 16 12/24/24 11:16 BP 135/61 12/24/24 11:16 Pulse Ox 98 12/24/24 11:16 O2 Del Method Room Air 12/24/24 11:16 BMI result Body Mass Index 25.2 Appearance: Alert. Oriented X3. No acute distress. Eyes: Pupils equal, round and reactive to light. ENT: Pharynx normal. atraumatic Neck: Normal inspection. Neck supple. no midline ttp CVS: Normal heart rate and rhythm. Pulses normal. Chest: L posterior rib ttp no signs of crepitus Respiratory: No respiratory distress. Breath sounds normal. Abdomen: Soft and non-tender. Back: no midline ttp Skin: Skin warm and dry. Normal skin color. Extremities: No lower extremity edema. L shoulder ttp along posterior humeral head, distal NV intact, no wrist or elbow pain, R thumb very distal partial nail avulsion - NV intact clean and dry no signs of infection Neuro: Oriented X 3. No motor deficit. No sensory deficit. CN2-12 intact Procedures Orthopedic Splinting/Casting Injury #1: Side: left Upper Extremity Immobilizer: sling/shoulder immobilizer Additional Comments: NV intact Medical Decision Making Medical Decision Making MDM Narrative: 69 yo female wtih PMH of UTI, HTN, anemia, anxiety and depression, CVA, cognitive impairment, not on thinners here with c/o mechanical trip and fall now with L shoulder pain no LOC no CP/SOB, no fevers, n/v/d. She has isolated pain to the L shoulder but it was unwitnessed. No prolonged downtime to suggest rhabdo at this time will obtain xray of L shoulder, ribs and CT head/cspine giv en age and mechanism. R thumb partial nail avulsion - no signs of infection will allow delayed healing Differential Diagnosis Differential Diagnoses: The differential diagnosis associated with the presentation includes fracture, strain, contusion, head injury, neck pain Admission/Observation Consideration of admission/observation: Escalation of care including admission/observation considered at baseline no weakness, fevers, n/v/d nothing to suggest infection no dyspnea trouble breathing no signs of effusion/hemo stable for outpatient mangement with ceftin for sinusitis, pain control and given incentive spirometer Independent Interpretation I performed an independent interpretation of an: Plain X-Ray (+ rib fracture) and CT Scan (no trauma, sinusitis) Radiology Impression Discussion of test interpretation with radiology: I have reviewed the radiologist's reading. Independent Historian Clinical information obtained from an independent historian. History obtained from or confirmed by: Other (caregiver) External Record Review External record reviewed: Inpatient record and Outpatient record Prescription Management I considered prescription management with: Pain Medication and Antibiotic Discharge Plan Discharge Clinical Impression: Avulsion of nail of right thumb Left rib fracture Qualifiers: Encounter type: initial encounter Rib fracture type: multiple ribs Fracture type: closed Qualified Code(s): S22.42XA - Multiple fractures of ribs, left side, initial encounter for closed fracture Shoulder sprain Qualifiers: Encounter type: initial encounter Shoulder sprain type: unspecified sprain Laterality: left Qualified Code(s): S43.402A - Unspecified sprain of left shoulder joint, initial encounter Patient Disposition: Home, Self-Care Instructions: Sinusitis (ED), Rib Fracture (ED), Shoulder Sprain (ED), Nail Avulsion (ED) Additional Instructions: CT head and neck no trauma but sinus disease R thumb xray normal L shoulder xray normal rib xray not normal WEAR SLING FOR 4 DAYS IF NOT BETTER BY TUESDAY PLEASE SEE HER DOCTOR XR/XR ribs LT min 3V w CXR1V IMPRESSION: 1. No active pulmonary disease. 2. Minimally displaced fractures of the left lateral fourth and fifth ribs, and possibly the left lateral third. at this time 3 deep breaths an hour while awake. finish antibiotics. return for worsening pain, difficulty breathing, fevers, lots of mucous in cough or any other concerns. take tylenol for pain Prescriptions: New lidocaine 5 % adhesive patch,medicated 1 patch topical DAILY Qty: 30 0RF Rx Instructions: leave on most painful area for up to 12 hrs cefuroxime axetil 500 mg tablet 500 mg PO BID 7 Days Qty: 14 0RF No Action ferrous sulfate 325 mg (65 mg iron) tablet 325 mg PO DAILY 90 Days Qty: 90 2RF losartan 25 mg tablet 25 mg PO DAILY 90 Days Qty: 90 1RF nitrofurantoin macrocrystal 100 mg capsule 100 mg PO BID 14 Days Qty: 28 0RF Rx Instructions: must administer with a meal/food (DME) adult diapers pull-ups Large See Rx Instructions .Route .MEDSUPPLY Qty: 120 11RF Rx Instructions: As directed estradiol 0.01 % (0.1 mg/gram) cream 1 appful vaginal 2XW Qty: 42.5 0RF Rx Instructions: for 14 days amlodipine 5 mg tablet 5 mg PO DAILY Qty: 90 1RF donepezil 5 mg tablet PO Print Language: Cymro
[2024-12-24 14:33] VITALS: BP 135/61; PULSE 81; RESP 16; TEMP 36.5; O2SAT 98
== END 2024-12-24 14:35 | disposition home or self-care (01) ==
PROVIDERS: Emergency Provider Emergency Medicine; PCP Internal Medicine
DX: S61.101A Unspecified open wound of right thumb with damage to nail, initial encounter (principal); S22.42XA Multiple fractures of ribs, left side, initial encounter for closed fracture; S43.402A Unspecified sprain of left shoulder joint, initial encounter; S49.92XA Unspecified injury of left shoulder and upper arm, initial encounter; R51.9 Headache, unspecified; R07.81 Pleurodynia; M25.512 Pain in left shoulder; M54.2 Cervicalgia; W01.190A Fall on same level from slipping, tripping and stumbling with subsequent striking against furniture, initial encounter; Y93.9 Activity, unspecified; Y92.003 Bedroom of unspecified non-institutional (private) residence as the place of occurrence of the external cause; Y99.8 Other external cause status; Z87.891 Personal history of nicotine dependence; Z79.899 Other long term (current) drug therapy
CPT/HCPCS: 29105; 70450; 71101; 72125; 73030; 73140; 99282; 99284

== ENCOUNTER → 2024-12-24 11:19 | Outpatient (BNV) | payer MEDICARE, MEDICAID, SELFPAY | PROVIDERS: PCP Internal Medicine; Visit Provider Radiology Diagnostic Radiology | DX: S19.9XXA Unspecified injury of neck, initial encounter (principal); S09.90XA Unspecified injury of head, initial encounter; S22.42XA Multiple fractures of ribs, left side, initial encounter for closed fracture; M25.512 Pain in left shoulder; S61.102A Unspecified open wound of left thumb with damage to nail, initial encounter; W19.XXXA Unspecified fall, initial encounter | CPT/HCPCS: 71101; 72125; 73030; 73140 ==

== ENCOUNTER 2025-01-31 11:31 | Outpatient (REF) | payer MEDICARE, MEDICAID, SELFPAY ==
[2025-01-31 17:01] LABS: Urine Cytology See Pathology rpt
== END 2025-01-31 11:32 | disposition home or self-care (01) ==
LOC: HO.LNP 11:31
PROVIDERS: PCP Internal Medicine; Visit Provider Nurse Practitioner Family
DX: N39.46 Mixed incontinence (principal); N39.0 Urinary tract infection, site not specified; Z13.9 Encounter for screening, unspecified
CPT/HCPCS: 51798; 81003; 88112; 99212

== ENCOUNTER 2025-01-31 11:31 | Outpatient (AMB) | payer MEDICARE, MEDICAID, SELFPAY ==
--- NOTE | 2025-01-31 11:36 | A.OFFVIS_ITS ---
Intake Visit Reasons: 3m/US(set) Intake Note: Patient presents for follow up visit on: inmcontinence, recurrent uti, and ultrasound results Imaging Completed: 11/06/24 Urology Medications: vagifem Blood Thinner: none PVR: Software Controls Engineer Required: No Accompanied by: Daughter Allergies Penicillins [PENICILLINS] Allergy (Intermediate, Verified 01/31/25 18:52) RASH Medication List - Last Reconciled 01/31/25 by MELISSA Mckinney [adult diapers pull-ups As directed] amlodipine 5 mg PO DAILY donepezil mg PO losartan 25 mg PO DAILY 90 days HPI Comments Details: Viktoria is a 69-year-old female patient of Dr. Correia who was accompanied by her daughter Fabiola at today's office visit. She has a past medical history of insomnia, dementia, anxiety, recurrent depression, lacunar infarction, abnormal brain MRI, and history of alcohol abuse. She presents to the office today for follow-up of her recurrent urinary tract infections. Of note, patient was seen approximately 6 months ago as a new patient for recurrent urinary tract infections at which time recommendations were made for retroperitoneal ultrasound for further assessment evaluation. These results were reviewed with the patient and her daughter today. 11/24 bilateral kidneys are normal in echotexture. No hydronephrosis or renal calculi noted. There is a lesion at the right aspect of the bladder measuring 1.3 cm. Pre void bladder volume is approximately 225 mL. Postvoid bladder volume is approximately 25 mL. We discussed obtaining CT urogram as well as in office cystoscopy for direct visualization. During last office visit urine was sent for urine cytology 08/23 negative for high-grade urethral carcinoma. She denies having had any UTI like symptoms and or urinary tract infections since her last office visit here. In office urinalysis results reviewed with the patient and her daughter today. PVR 0 mL. During last office visit recommendations were made for initiation of Estrace cream verses Vagifem however this was never initiated.Patient's daughter reports patient has baseline urinary incontinence due to her forgetfulness. She denies patient to report hematuria, flank pain, fever, and or chills. Plan To address the abnormal ultrasound finding which suggested a possible mass, I recommend proceeding with a cystoscopy to visually inspect the bladder. This procedure is planned for the next visit. Additionally, I suggested obtaining a CT urogram to confirm the imaging findings and ensure completeness of our evaluation. Prior normal urine cytology results reviewed during today's office visit. I have assured the patient and discussed the risks and benefits of the proposed procedure. Consent was provided by the patient for the cystoscopy, and she expressed understanding and agreement with the diagnostic approach. Patient was informed and verbally consented to the use of an ambient scribe for clinic note documentation during this visit. Discussion Notes During our visit, I reviewed the results of the previous ultrasound which showed a suspicious area in the bladder warranting further exploration. The risks, benefits, and rationale for conducting a cystoscopy were clearly explained to provide direct visualization of the bladder and possibly confirm or exclude the presence of bladder masss. The patient was fully briefed on the minimal risks associated with this procedure and consented to proceed. I also proposed ordering a CAT scan to ensure thorough imaging. I advised her to maintain hydration and follow the plan outlined for next steps in evaluation during subsequent visits. 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 Mother Diabetes Social History Housing: Apartment Alcohol intake: former Patient Tobacco Use Status: Former Tobacco user Tobacco use type: Cigarette e-Cigarette/Vaping Use: Never Used Second Hand Smoke Exposure: No service: No Current occupational status: disabled Cognitive needs: Yes Hearing needs: No Vision needs: No Review of Systems Const Unobtainable due to mental condition Physical Exam Const General: cooperative, healthy appearing, comfortable, no acute distress, well developed, alert and awake Orientation/consciousness: patient oriented x3 Limitations: ambulation with cane HEENT Head: Yes normal to inspection, Yes normocephalic and Yes atraumatic Ears: hearing grossly normal bilaterally Eyes General: appearance normal, both eyes and all related structures Neck Neck: Yes normal visual inspection and Yes trachea midline Chest Chest palpation & inspection: normal inspection of the chest Resp Effort & Inspection: normal respiratory effort and able to speak in complete sentences Cardio Rate: regular rate GI Inspection: Yes normal to inspection General: Yes no CVA tenderness Back/Spine/Pelvis Back: no CVA tenderness Skin General skin exam: no rashes or lesions noted Neuro General: patient oriented x3 Extrem General: Yes normal to inspection Psych Appearance: grossly normal and well kempt Speech and movement: Normal speech and movement present and Clear speech present Affect: normal affect Attitude: cooperative Insight: Limited insight present (Psych) Judgement: Limited judgement present (Psych) Office Procedures Post Void Residual Post Residual Void Post Void Residual (PVR): 0 [id number]-[id number] Void Residual by ultrasound Results AMB Urinalysis, Automated UA Leukoctes 15 Kartik/uL Last Edit by [employer] Funding NancyRegalister on 01/31/25 12:00 UA Nitrite Last Edit by [employer] on 01/31/25 12:00 UA Urobilinogen 0.2 mg/dL Last Edit by [email or web address] CruzRegalister on 01/31/25 12:00 UA Protein 30 mg/dL Last Edit by [employer] on 01/31/25 12:00 UA pH 6.0 Last Edit by SSN Funding NancyRegalister on 01/31/25 12:00 UA Blood 25 Poli/uL Last Edit by [employer] on 01/31/25 12:00 UA Specific [place] 1.015 Last Edit by [employer] on 01/31/25 12:00 UA Ketone Last Edit by [employer] on 01/31/25 12:00 UA Bilirubin 0 mg/dL Last Edit by [employer] on 01/31/25 12:00 UA Glucose 0 mg/dL Last Edit by [employer] on 01/31/25 12:00 Results Reviewed Results Reviewed: Laboratory Last Values Urine pH (Auto) 6.0 01/31/25 11:59 Specific [place] (Auto) 1.015 01/31/25 11:59 Urine Protein (Auto) 30 mg/dL 01/31/25 11:59 Glucose (UA)(Auto) 0 mg/dL 01/31/25 11:59 Urine Blood (Auto) 25 Poli/uL 01/31/25 11:59 Urine Bilirubin (Auto) 0 mg/dL 01/31/25 11:59 Urine Urobilinogen (Auto) 0.2 mg/dL 01/31/25 11:59 Leukocyte Esterase (Auto) 15 Kartik/uL 01/31/25 11:59 Ordering Physician: Cely Moffett Date of Service: 11/06/24 Procedure(s): US retroperitoneal comp Accession Number(s): [id number] cc: Cely Moffett; An Smith MD~ CLINICAL HISTORY: N39.0 - Urinary tract infection, site not specified Retroperitoneal ultrasound Comparison: None Findings: The kidneys are normal in echotexture bilaterally. No hydronephrosis. The right kidney is normal in size, measuring 9.5cm in length. The left kidney is normal in size, measuring 9.6cm in length. There is a lesion at the right aspect of the bladder measuring 1.1 x 1.0 x 1.3 cm. Prevoid volume 224 mL. Postvoid volume 23.6 mL. Ureteral jets are visualized bilaterally. Impression: 1.3 cm lesion in the bladder. Follow up with urology to exclude malignancy. Assessment & Plan Assessment & Plan (1) Recurrent UTI: Code(s): N39.0 - Urinary tract infection, site not specified Category: Medical Plan In office urinalysis results reviewed with the patient and her daughter today; will send for repeat urine cytology PVR 0 mL. Recent retroperitoneal ultrasound results reviewed with the patient and her dark today; as noted above. Will arrange for CT urogram for further assessment evaluation. BUN and creatinine ordered for imaging. We discussed in office cystoscopy for direct visualization. Patient currently denies any bothersome urinary issues. She reports be happy with current voiding parameters. Follow-up next available in office cystoscopy with imaging and labs to be completed prior; or sooner with any issues, concerns, and or questions. Orders: Orders AMB Post Void Residual by ultrasound Today N39.46 - Mixed incontinence CT urogram Today N32.89 - Other specified disorders of bladder, N39.0 - Urinary tract infection, site not specified, R31.29 - Other microscopic hematuria Creatinine Today R39.15 - Urgency of urination AMB Urinalysis Automated Today Z13.9 - Encounter for screening, unspecified Urine Cytology Today N39.0 - Urinary tract infection, site not specified, Z13.9 - Encounter for screening, unspecified Blood Urea Nitrogen Today R39.15 - Urgency of urination Patient Instructions: The patient had an opportunity to ask questions regarding the treatment plan. All questions were answered. Physical exam, labs, and imaging were discussed and reviewed in detail. As well as risks, benefits, and discussion of treatment choices. No major barriers to understanding were identified. The patient expressed understanding and agreement with the above treatment plan. The patient was made aware they should contact our office by phone for worsening of their current condition, the appearance of new symptoms, or with any questions or concerns. Compliance is encouraged with any medications and follow up testing that is ordered. It is a privilege to be allowed the opportunity to participate in? your urological care.? Again, if you have any questions or concerns If you have any questions or concerns please do not hesitate to contact me. The office is [phone]. This note is constructed using voice recognition software. While every effort has been made to ensure accuracy aluminum fabrication supervisor errors may have been included. Yours sincerely, MELISSA Mckinney Coding Level of Care Code Est Pt Level 3 (50828) Complex EM visit Add On G2211 Diagnoses Recurrent UTI N39.0 CPT Codes Post Residual Void - PVR CPT Code: 05219-Wxit Void Residual by ultrasound ([id number])
== END 2025-01-31 12:31 | disposition home or self-care (01) ==
LOC: HO.HUSH 11:32
PROVIDERS: PCP Internal Medicine; Visit Provider Nurse Practitioner Family
DX: N39.0 Urinary tract infection, site not specified (principal); Z13.9 Encounter for screening, unspecified
CPT/HCPCS: 99213; G2211

== ENCOUNTER 2025-03-12 14:30 | Outpatient (AMB) | payer MEDICARE, MEDICAID, SELFPAY ==
[2025-03-12 14:32] VITALS: BP 136/67; PULSE 102; O2SAT 97; BMI 27.3
--- NOTE | 2025-03-12 14:32 | A.OFFVIS_ITS ---
Vital Signs 03/12/25 14:32 Height 5 ft 3 in Weight 154 lb BMI 27.3 BP 136/67 Blood Pressure Location Rt brachial Position Sitting Pulse 102 H Pulse Source Pulse Oximeter Pulse Oximetry (%) 97 Oxygen Delivery Method Room Air Intake Visit Reasons: Chronic dry cough Allergies Penicillins [PENICILLINS] Allergy (Intermediate, Verified 03/12/25 14:40) RASH HPI HPI Chronic dry cough: Details: 69-year-old lady, nonsmoker, with underlying history of prior CVAs and likely dysphagia referred for evaluation of chronic intermittent cough ongoing for the last year. Patient has been evaluated approximately 1 year prior, however after that she was lost to follow-up. Patient is interested in restarting workup at this time. 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 Mother Diabetes Social History Housing: Apartment Alcohol intake: former Patient Tobacco Use Status: Former Tobacco user Tobacco use type: Cigarette e-Cigarette/Vaping Use: Never Used Second Hand Smoke Exposure: No service: No Current occupational status: disabled Cognitive needs: Yes Hearing needs: No Vision needs: No Review of Systems Const Denies daytime sleepiness, Denies excessive sweating, Denies fatigue, Denies fever(s), Denies lethargy, Denies malaise, Denies night sweats, Denies snoring and Denies weight loss Eyes Denies blurry vision and Denies itchy eyes ENT Denies nasal congestion, Denies post nasal drip, Denies sinus pain, Denies sinus pressure and Denies other ( Thrush) Card Denies chest pain, Denies pedal edema, Denies dyspnea, Denies orthopnea and Denies paroxysmal nocturnal dyspnea Resp Reports cough, Denies hemoptysis, Denies excessive phlegm production, Denies dyspnea, Denies snoring and Denies wheezing GI Denies abdominal pain and Denies heartburn Musc Denies myalgias, Denies arthralgias and Denies joint swelling Skin/Breast Denies rash Neuro Denies memory loss and Denies seizure-like activity Psych Denies abnormal sleep pattern, Denies anxiety and Denies memory loss Endo Denies excessive sweating, Denies fatigue and Denies heat intolerance Reza/Lymph Denies easy bruising Aller/Immun Denies itchy eyes, Denies seasonal rhinorrhea and Denies wheezing Physical Exam Vital Signs: Last Vital Signs Pulse 102 H 03/12/25 14:32 BP 136/67 03/12/25 14:32 Pulse Ox 97 03/12/25 14:32 Oxygen Delivery Method Room Air 03/12/25 14:32 BMI result Body Mass Index 27.3 Const General: no acute distress and alert Nutritional Appearance: not obese Orientation/consciousness: Other orientation findings ( oriented) HEENT Head: Yes atraumatic Eyes General: appearance normal, both eyes and all related structures Sclerae: sclerae normal EOM: EOMs intact bilaterally Neck Neck: Yes supple Lymphatic: no lymphadenopathy noted Resp Effort & Inspection: normal respiratory effort and no use of accessory muscles Auscultation: clear to auscultation bilaterally Cardio Rate: regular rate Rhythm: regular rhythm Heart sounds: no gallops, no murmurs and no rubs Skin General skin exam: other ( warm) Extrem General: No clubbing, No cyanosis and No edema Assessment & Plan Assessment & Plan (1) Cough: Code(s): R05.9 - Cough, unspecified Category: Medical Plan: Particularly with food intake, will obtain modified barium swallow. (2) Pulmonary nodule: Code(s): R91.1 - Solitary pulmonary nodule Category: Medical Plan: Will obtain CT chest for further evaluation. Orders: Orders CT chest wo IV con Today R91.1 - Solitary pulmonary nodule FL Modified Barium Swallow Today R13.10 - Dysphagia, unspecified Coding Level of Care Code Est Pt Level 4 (27941) Diagnoses Cough R05.9 Pulmonary nodule R91.1
== END 2025-03-12 14:58 | disposition home or self-care (01) ==
LOC: HO.HPS 14:31
PROVIDERS: PCP Internal Medicine; Visit Provider Internal Medicine Pulmonary Disease
DX: R05.9 Cough, unspecified (principal); R91.1 Solitary pulmonary nodule
CPT/HCPCS: 99214

== ENCOUNTER → 2025-03-12 14:30 | Outpatient (BNVA) | payer MEDICARE, MEDICAID, SELFPAY | PROVIDERS: PCP Internal Medicine; Visit Provider Internal Medicine Pulmonary Disease | DX: R05.9 Cough, unspecified (principal); R91.1 Solitary pulmonary nodule | CPT/HCPCS: 99212 ==

== ENCOUNTER 2025-05-02 14:51 | Outpatient (REF) | payer MEDICARE, MEDICAID, SELFPAY ==
[2025-05-02 16:33] LABS: Blood Urea Nitrogen 14 mg/dL (9-16); Estimated Glomerular Filt Rate > 60
== END 2025-05-02 14:52 | disposition home or self-care (01) ==
LOC: HO.HMGCLDS 14:51
PROVIDERS: PCP Internal Medicine; Visit Provider Nurse Practitioner Family
DX: R39.15 Urgency of urination (principal)
CPT/HCPCS: 36415; 82565; 84520

== ENCOUNTER 2025-05-07 13:45 | Outpatient (REF) | payer MEDICARE, MEDICAID, SELFPAY ==
--- NOTE | ~2025-05-07 | CT_ITS ---
EXAMINATION: CT CHEST WITHOUT CONTRAST CLINICAL INFORMATION: Pulmonary nodule DLP: 236 mGY*cm COMPARISON: October 03, 2020 TECHNIQUE: Multidetector volumetric CT imaging of the chest was done. Axial MIP volume rendering provided. Sagittal and coronal reformatted images were obtained. This CT examination was performed using dose optimization techniques as appropriate, variously including the following: *Automated exposure control *Adjustment of mA and/or kV according to patient size (this includes techniques or standardized protocols for targeted exams where dose is matched to indication/reason for exam; i.e. extremities or head) *Use of iterative reconstruction technique FINDINGS: LUNGS: Reference axial series #6 Image 44/151: Left upper lobe nodule in the apical posterior segment is obscured by motion artifact but appears similar to the prior 65/151: Subpleural nodule right middle lobe is 4 mm, unchanged. 93/151: Lateral segment left lower lobe linear nodularity is unchanged.. MEDIASTINUM: The mediastinum is normal. CORONARY ARTERY CALCIFICATION: Present PLEURA: There is no pleural effusion. No pleural mass or thickening. AXILLA: No lymphadenopathy. UPPER ABDOMEN: There is a calcific stone in the dependent portion of the gallbladder. OSSEOUS STRUCTURES: Mild superior endplate compression fracture is present at T8 and a moderate superior endplate compression fracture of L2 are probably chronic. There are new since 2019 CT/CT chest wo IV con IMPRESSION: Stable appearance of lung and subpleural nodules since 2019. No further follow-up is indicated T8 and L2 compression fractures are likely chronic. Fleischner guidelines were followed. Electronically signed by: Dylon Singh MD 05/07/2025 03:34 PM EDT
--- NOTE | ~2025-05-07 | CT_ITS ---
EXAMINATION: CT ABDOMEN AND PELVIS WITHOUT AND WITH CONTRAST CLINICAL INFORMATION: Uterine tract infection. COMPARISON: October 21, 2020. TECHNIQUE: Noncontrast CT of the abdomen and pelvis is performed followed by split bolus contrast-enhanced images using 85 mL Omnipaque 350 contrast. Postcontrast imaging is performed during the combined nephrogram and excretion phase. Split injection. Sagittal and coronal reformatted images were obtained on the technologist's workstation for both the precontrast and postcontrast phases. This CT examination was performed using dose optimization techniques as appropriate, variously including the following: *Automated exposure control *Adjustment of mA and/or kV according to patient size (this includes techniques or standardized protocols for targeted exams where dose is matched to indication/reason for exam; i.e. extremities or head) *Use of iterative reconstruction technique DLP: 902 mGy centimeter. FINDINGS: Limited by patient's motion artifact. LUNG BASES: Nonspecific 2 mm pulmonary nodules, right lung base. LIVER, GALLBLADDER, AND BILIARY TREE: There are measures 15 cm. No focal lesion. Gallbladder is contracted. No pericholecystic fluid collection or gallbladder wall thickening. No intrahepatic or extrahepatic biliary ductal dilatation. PANCREAS: No focal lesion. No peripancreatic fluid collection. No main pancreatic ductal dilatation. SPLEEN: 10 cm. No focal lesion. ADRENAL GLANDS: No nodular lesion. KIDNEYS AND URETERS: Right kidney: No hydronephrosis. No nephrolithiasis. Normal enhancement pattern in the renal parenchyma and normal excretion into the collecting system. Left kidney: No hydronephrosis. No nephrolithiasis. No focal mass. Normal enhancement pattern of the renal parenchyma and normal in excretion into the collecting system. BLADDER: Fluid-filled. 3 cm fluid-filled diverticulum in the anterior superior wall.. GASTROINTESTINAL TRACT: Appendix is normal. Abundant stool. No intestinal obstruction pattern. No intestinal wall thickening. No pneumatosis intestinalis. No pneumoperitoneum. No ascites. ABDOMINAL WALL: Small fat-containing umbilical hernia. LYMPH NODES: Nonspecific mildly prominent mesenteric. VASCULAR: No aneurysm or dissection. Mixed plaques throughout the abdominal aorta wall and catheters. PELVIC VISCERA: Not enlarged. No gross masses. OSSEUS STRUCTURES: Superior endplate compression deformity representing 30% volume loss likely old at L2 vertebra. Mild multilevel thoracolumbar spondylosis. S-shaped curvature of the thoracolumbar spine. Levoconvex curvature apex at L2-3. No lytic or blastic lesions. CT/CT urogram IMPRESSION: 3 cm diverticulum, urinary bladder. No hydronephrosis or nephrolithiasis. No focal mass. The examination is limited due to motion artifact. Electronically signed by: Art Li MD 05/07/2025 03:24 PM EDT
[2025-05-07] MEDS: iohexoL 350 MG/ML 100 ML INFUS..BTL IV (14:58)
== END 2025-05-07 13:46 | disposition home or self-care (01) ==
LOC: HO.CT 13:45
PROVIDERS: PCP Internal Medicine; Visit Provider Internal Medicine Pulmonary Disease
DX: R91.1 Solitary pulmonary nodule (principal); R31.29 Other microscopic hematuria; N32.89 Other specified disorders of bladder; N39.0 Urinary tract infection, site not specified
CPT/HCPCS: 71250; 74178; Q9967

== ENCOUNTER → 2025-05-07 13:47 | Outpatient (BNV) | payer MEDICARE, MEDICAID, SELFPAY | PROVIDERS: PCP Internal Medicine; Visit Provider Radiology Diagnostic Radiology | DX: N39.0 Urinary tract infection, site not specified (principal); R91.8 Other nonspecific abnormal finding of lung field | CPT/HCPCS: 74178 ==

== ENCOUNTER 2025-05-28 07:33 | Outpatient (AMB) | payer MEDICARE, MEDICAID, SELFPAY ==
--- NOTE | 2025-05-28 07:35 | AM.OFFVISMDC ---
Intake Vital Signs 05/28/25 07:40 05/28/25 09:54 Height 5 ft 3 in Weight 153 lb BMI 27.1 BP 152/70 H 130/70 Blood Pressure Location Lt brachial Lt brachial Position Sitting Sitting Intake Visit Reasons: AWV Intake Note: Patient here for an annual wellness visit Transition Manager Required: No Accompanied by: Daughter Allergies Penicillins (PENICILLINS) Allergy (Intermediate, Verified 05/28/25 07:49) RASH Medication List - Last Reconciled 05/28/25 by An Barney MD [adult diapers pull-ups As directed] amlodipine 5 mg PO DAILY donepezil 10 mg PO BEDTIME 90 days losartan 25 mg PO DAILY 90 days HPI HPI Comments History of Present Illness Details PPP handed to patient. [place] of care reviewed and updated. The patient is a 69-year-old female presenting with a Medicare wellness exam. She has a history of dementia, for which she follows up with neurology and is on donepezil. The patient also has hypertension, managed with amlodipine and losartan, and her blood pressure was initially elevated but normalized upon recheck. She experiences depression, which has been challenging to manage due to communication difficulties and limited response to medication. The patient has incontinence and requires assistance with daily activities, including bathing, dressing, and toileting. She exhibits leg weakness and uses a walker for mobility, with consideration for physical therapy to improve stability. The patient has a history of alcohol and tobacco use but has since ceased these activities. Preventative care measures discussed include mammogram, bone density scan, colonoscopy, tetanus vaccine, and pneumonia vaccine. 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 Mother Diabetes Social History Housing: Apartment Alcohol intake: former Patient Tobacco Use Status: Former Tobacco user Tobacco use type: Cigarette e-Cigarette/Vaping Use: Never Used Second Hand Smoke Exposure: No service: No Current occupational status: disabled Cognitive needs: Yes Hearing needs: No Vision needs: No Questionnaire Medicare Wellness Checkup [age] What gender do you identify with?: female During the past 4 weeks, how much have you been bothered by emotional problems such as feeling anxious, depressed, irritable, sad or downhearted, and blue?: moderately During the past 4 weeks, has your physical & emotional health limited your social activities with family, friends, neighbors, or groups?: moderately During the past 4 weeks, how much bodily pain have you generally had?: mild pain During the past 4 weeks, was someone available to help you if you needed & wanted help?: yes, as much as I wanted During the past 4 weeks, what was the hardest physical activity you could do for at least 2 minutes?: very light Can you get to places out of walking distance without help? (For eg., can you travel alone on buses, taxis or drive your car?): No Can you go shopping for groceries or clothes without someone's help?: No Can you prepare your own meals?: No Can you do your housework without help?: No Because of any health problems, do you need the help of another person with your personal care needs such as eating, bathing, dressing or getting around the house?: Yes Can you handle your own money without help?: No During the past 4 weeks, how would you rate your health in general?: good During the past 4 weeks how have things been going for you?: pretty well Are you having difficulties driving your car?: not applicable, I don't use a car Do you always fasten your seat belt when you are in a car?: yes, usually During past 4 weeks, have you been bothered by the following: never: Falling or dizzy when standing up, Sexual problems?, Trouble eating well? and Teeth or denture problems?, sometimes: Tiredness or fatigue? and always: Problems using the telephone? Have you fallen 2 or more times in the past year?: Yes Are you afraid of falling?: Yes Are you a smoker?: no During the past 4 weeks, how many drinks of wine, beer, or other alcoholic beverages did you have?: no alcohol at all Do you exercise for about 20 minutes 3 or more times a week?: no, I usually do not exercise this much Have you been given information to help with the following?: yes: Hazards in your house that might hurt you? and yes: Keeping track of your medications? How often do you have trouble taking medicines the way you have been told to take them?: I always take medicine as prescribed How confident are you that you can control & manage most of your health problems?: not very confident What is your race?: or origin or descent Mini Mental State Exam (MMSE) Orientation What is the (year) (season) (date) (day) (month)?: season and month Where are we (state) (county) (town or city) (hospital) (floor)?: state, county, town or city, hospital/clinic and floor Registration Name of 3 unrelated objects clearly and slowly, then ask patient to repeat all 3 of them. (1st repeat determines score. Make sure they can repeat all three): object 1, object 2 and object 3 Attention & Calculation (CHOOSE ONE) Spell WORLD backwards (DLROW): 5 letters Language Show patient a wristwatch & ask what it is. Repeat for pencil.: watch and pencil Ask the patient to repeat the phrase 'No ifs, ands, or buts' after you.: correct Ask the patient to 'take a piece of paper with their right hand' 'fold paper in half' 'place paper on floor': take paper in right hand, fold paper in half and place paper on floor Print the sentence 'CLOSE YOUR EYES' on a piece. If patient actually closes eyes then score.: followed written direction Give patient a blank piece of paper & ask to write a sentence. Score if it contains a noun & verb.: sentence contains subject and verb Score Score: 23 Activity of Daily Living Bathing - sponge bath, tub bath or shower: receives help in bathing more than one body part (or not bathed) Dressing - getting clothes from closets & drawers, including inner/outer garments & fasteners.: receives help getting clothes or getting dressed, or stays undressed Toileting - going to the 'toilet room' for urine/bowel elimination & cleaning self/arranging clothes: receives help going to toilet room, cleaning self or arranging clothes Transfer: moves in & out of bed and chair without help (may use support object) Continence: supervision helps urination/bowel control; catheter use; incontinent Feeding: feeds self without help Total Score: 3 Information obtained from: informant Using telephone: dependent Traveling: dependent Shopping: dependent Preparing meals: dependent Housework: dependent Taking medicine: dependent Managing money: dependent PHQ-9 Over the last 2 weeks, how often have you been bothered by any of the following problems? 1. Little interest or pleasure in doing things: nearly every day 2. Feeling down, depressed, or hopeless: several days 3. Trouble falling or staying asleep, or sleeping too much: several days 4. Feeling tired or having little energy: more than half the days 5. Poor appetite or overeating: not at all 6. Feeling bad about yourself - or that you are a failure or have let yourself or your family down: not at all 7. Trouble concentrating on things, such as reading the newspaper or watching television: several days 8. Moving or speaking so slowly that other people could have noticed. Or the opposite - being so fidgety or restless that you have been moving around a lot more than usual: several days 9. Thoughts that you would be better off or of hurting yourself in some way: not at all Total score: 9 Depression Screening Interpretation: Positive Depression Screening Follow-up: Existing condition and Follow-up Visit Requested Depression Screening Done: Yes 94470 - PHQ-9 Billing: Yes Source: Developed by Drs. Tutu Ricardo, Kaya Sharma, Rosendo Sung and colleagues, with an educational angelo from [employer]. Fall Risk Assessment Fall Risk Assessment Fall risk assessment: No Falls in past year AUDIT C Alcohol Use Questionnaire (AUDIT-C) 1. How often do you have a drink containing alcohol?: Never Total Score: 0 Score Reviewed/Action Taken: No CELIA-7 AMB Questionnaire CELIA-7 Date CELIA - 7 assessed: 05/28/25 Feeling nervous, anxious, or on edge: 0 = Not at all Not being able to stop or control worryin = Not at all Worrying too much about different things: 0 = Not at all Trouble relaxin = Not at all Being so restless that it is hard to sit still: 0 = Not at all Becoming easily annoyed or irritable: 0 = Not at all Feeling afraid as if something awful might happen: 0 = Not at all Total CELIA-7 score (0-4 normal; 5-9 mild; 10-14 moderate; 15-21 severe): 0 Source: Developed by Drs. Tutu Ricardo, Kaya Sharma, Rosendo Sung and colleagues, with an educational angelo from [employer]. CELIA-7 Assessment Billing CELIA-7 Assessment Tool: CELIA-7 Assessment 18273 Thrive Questionnaire Date Thrive assessed: 02/05/25 I am a: Parent/Caregiver What is your living situation today?: I have a steady place to live Within the past 12 months, did the food you bought not last and you didn't have the money to get more?: Never true Within the past 12 months, did you worry whether your food would run out before you got money to buy more?: Never true Do you have trouble paying for medicines?: No Do you have trouble getting transportation to medical appointments?: No Do you have trouble paying your heating and electricity bill?: No Do you have trouble taking care of your child, family member or friend?: No Do you have trouble with day-to-day activities such as bathing, preparing meals, shopping, managing finances, etc.?: Yes Are you currently unemployed and looking for a job?: No Please select the resources that you would like help with: None Currently or been in a relationship where the following occur: No concerns reported THRIVE Score: 0 Review of Systems Const All systems reviewed & are unremarkable except as noted in HPI and below Card Denies chest pain at rest, Denies chest pain with activity, Denies edema, Denies irregular heart rhythm, Denies claudication, Denies dyspnea, Denies dyspnea on exertion, Denies orthopnea, Denies paroxysmal nocturnal dyspnea and Denies slow heart rate Resp Denies cough, Denies dyspnea and Denies dyspnea on exertion GI Denies abdominal pain, Denies change in bowel habits, Denies excessive flatus, Denies nausea and Denies vomiting Denies urinary incontinence, Denies urinary hesitancy and Denies urinary urgency Musc Denies abnormal gait, Denies atrophy, Denies deformity and Denies limited range of motion Skin/Breast Denies bleeding lesions, Denies changing lesions and Denies rash Neuro Denies abnormal gait, Denies behavioral changes and Denies lack of coordination Psych Denies behavioral changes Physical Exam Vital Signs: Last Vital Signs BP 152/70 H 05/28/25 07:40 BMI result Body Mass Index 27.1 Neck Neck: Yes normal visual inspection and Yes supple Resp Effort & Inspection: normal respiratory effort Auscultation: clear to auscultation bilaterally Cardio Jugular venous distension: no JVD Rate: regular rate Rhythm: regular rhythm Heart sounds: S1 normal heart sound present and S2 normal heart sound present Neuro Romberg Test: Negative Extrem General: Yes full ROM Assessment & Plan Assessment & Plan (1) Encounter for Medicare annual wellness exam: Code(s): Z00.00 - Encounter for general adult medical examination without abnormal findings (2) Dementia: Code(s): F03.90 - Unspecified dementia, unspecified severity, without behavioral disturbance, psychotic disturbance, mood disturbance, and anxiety (3) Lacunar infarction: Code(s): I63.81 - Other cerebral infarction due to occlusion or stenosis of small artery (4) Leg weakness: Code(s): R29.898 - Other symptoms and signs involving the musculoskeletal system (5) 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 A colonoscopy is recommended for colon cancer screening, considering the last one was performed in 2004. The patient is due for a tetanus vaccine, last administered in 2013, and a pneumonia vaccine is also needed. For her hypertension, the patient's blood pressure will be monitored, and she will continue her current medications, amlodipine and losartan. Physical therapy is considered to address her leg weakness and improve mobility. The patient's depression will be monitored, and alternative management strategies may be considered due to limited response to previous medications. Patient was informed and verbally consented to the use of an ambient scribe for clinic note documentation during this visit. Orders: Orders MM tomosynthesis screening BI Today Z12.31 - Encounter for screening mammogram for malignant neoplasm of breast XR DEXA axial skeleton Today Z78.0 - Asymptomatic menopausal state Vitamin D 25-OH Total Today E55.9 - Vitamin D deficiency, unspecified Complete Blood Count Auto Diff Today D64.9 - Anemia, unspecified IRON PROFILE Today D64.9 - Anemia, unspecified OT Evaluation and Treatment Today R29.898 - Other symptoms and signs involving the musculoskeletal system Lipid Panel Today E78.5 - Hyperlipidemia, unspecified Vitamin B12 and Folate Today E53.8 - Deficiency of other specified B group vitamins Comprehensive Deposit. Panel Fast Today F03.90 - Unspecified dementia, unspecified severity, without behavioral disturbance, psychotic disturbance, mood disturbance, and anxiety Referrals Open Access Screening Colonoscopy Referral Z12.12 - Encounter for screening for malignant neoplasm of rectum Quality Reporting (2019) Fall Risk Screening ([facility] 139) Fall risk assessment: No Falls in past year Depression/Bipolar (159/160/161/177) PHQ-9: Total score: 9 Coding Level of Care Code Medicare Subsequent (G0439) Est Pt Level 3 (21457) Diagnoses Encounter for Medicare annual wellness exam Z00.00 Dementia F03.90 Lacunar infarction I63.81 Leg weakness R29.898 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
[2025-05-28 07:40] VITALS: BP 152/70; BMI 27.1
[2025-05-28 09:54] VITALS: BP 130/70
== END 2025-05-28 08:11 | disposition home or self-care (01) ==
LOC: HO.HMCH 07:34
PROVIDERS: PCP Internal Medicine; Visit Provider Internal Medicine
DX: Z00.00 Encounter for general adult medical examination without abnormal findings (principal); F03.90 Unspecified dementia, unspecified severity, without behavioral disturbance, psychotic disturbance, mood disturbance, and anxiety; I63.81 Other cerebral infarction due to occlusion or stenosis of small artery; F10.982 Alcohol use, unspecified with alcohol-induced sleep disorder; R29.898 Other symptoms and signs involving the musculoskeletal system; F33.0 Major depressive disorder, recurrent, mild

== ENCOUNTER → 2025-05-28 07:33 | Outpatient (BNVA) | payer MEDICARE, MEDICAID, SELFPAY | PROVIDERS: PCP Internal Medicine; Visit Provider Internal Medicine | DX: Z00.00 Encounter for general adult medical examination without abnormal findings (principal); F03.90 Unspecified dementia, unspecified severity, without behavioral disturbance, psychotic disturbance, mood disturbance, and anxiety; I63.81 Other cerebral infarction due to occlusion or stenosis of small artery; R29.898 Other symptoms and signs involving the musculoskeletal system; F10.982 Alcohol use, unspecified with alcohol-induced sleep disorder; F33.0 Major depressive disorder, recurrent, mild | CPT/HCPCS: 96127; 99212 ==